=== PATIENT | male | born 1975 | race Caucasian/White ===

== ENCOUNTER 2020-04-02 10:29 | Outpatient (CLI) | payer OTHER, SELFPAY ==
[2020-04-02 11:04] LABS: Basophils Absolute Auto 0.1 K/mm3 (0.0-0.1); Basophils Percent Auto 0.8 % (0.2-1.2); Eosinophils Absolute Auto 0.2 K/mm3 (0-0.3); Eosinophils Percent Auto 2.8 % (0-4.4); Hematocrit 43.5 % (42.0-52.0); Hemoglobin 15.2 g/dL (14.0-18.0); Immature Granulocyte Absolute 0.03 K/mm3 (0.00-0.031); Immature Granulocyte Percent A 0.5 % (0-0.5); Lymphocytes Absolute Auto 2.23 K/mm3 (0.9-3.2); Lymphocytes Percent Auto 34.5 % (18.3-44.2); Mean Corpuscular HGB Conc 34.9 g/dl (32-36); Mean Corpuscular Hemoglobin 30.5 pg (26-34); Mean Corpuscular Volume 87.3 fl (80-100); Mean Platelet Volume 9.2 fl (7.4-10.4); Monocytes Absolute Auto 0.4 K/mm3 (0.1-0.6); Monocytes Percent Auto 6.6 % (2.6-8.5); Neutrophils Absolute Auto 3.6 K/mm3 (1.3-6.7); Neutrophils Percent Auto 54.8 % (45.5-73.1); Platelet Count Result 202 k/mm3 (150-375); Red Blood Count 4.98 M/mm3 (4.6-6.20); Red Cell Distribution Width 11.9 % (11.5-14.5); White Blood Count 6.5 K/mm3 (4.5-10.0)
[2020-04-02 11:10] LABS: Add Urine Microscopic? NO; Appearance Urine Clear (Clear); Bilirubin Urine Negative (Negative); Blood Urine Negative (Negative); Color Urine Straw (Yellow); Glucose Urine UA Negative (Negative); Ketones Urine Negative (Negative); Leukocyte Esterase Ur Negative LEU/UL (Negative); Nitrate Urine Negative (Negative); Protein Urine Negative (Negative); Specific Grav Ur 1.012 (1.001-1.035); Urobilinogen Urine Negative mg/dL (<2.0)
[2020-04-02 11:13] LABS: Urine Cotinine NEGATIVE
[2020-04-02 11:19] LABS: Alanine Aminotransferase 36 U/L (4-50); Albumin Level 4.5 g/dL (3.5-5.1); Alkaline Phosphatase 62 U/L (38-126); Anion Gap 9 mmol/L (8-16); Aspartate Amino Transferase 31 U/L (17-59); Bilirubin,Total 0.7 mg/dL (0.2-1.3); Blood Urea Nitrogen 19 mg/dL (9-20); Calcium 9.6 mg/dL (8.4-10.2); Carbon Dioxide 31 mmol/L (22-30); Chloride 102 mmol/L (98-107); Cholesterol 185 mg/dL (0-200); Estimated Glomerular Filt Rate > 60; Glucose 104 mg/dL (75-110); HDL Direct 46 mg/dL; Potassium 3.9 mmol/L (3.4-5.0); Sodium 142 mmol/L (137-145); Triglycerides 165 mg/dL (<150)
[2020-04-02 11:31] LABS: LDL Cholesterol Direct 121 mg/dL
[2020-04-02 12:15] LABS: Thyroid Stimulating Hormone Reflex 0.883 uIU/mL (0.465-4.68)
== END 2020-04-02 10:30 | disposition home or self-care (01) ==
PROVIDERS: PCP Registered Nurse; Visit Provider Registered Nurse
DX: Z68.29 Body mass index [BMI] 29.0-29.9, adult (principal); I10 Essential (primary) hypertension
CPT/HCPCS: 80053; 80061; 80307; 81003; 84443; 85025

== ENCOUNTER 2020-07-04 20:30 | Emergency (ER) | payer OTHER, SELFPAY ==
[2020-07-04 20:42] VITALS: BP 175/146; PULSE 135; RESP 18; TEMP 36.7; O2SAT 99
--- NOTE | 2020-07-04 20:44 | ED.ARRPALP ---
HPI - Arrhythmia/Palpitations General Chief Complaint: Arrhythmia/Palpitations Stated Complaint: inc hr Time Seen by Provider: 07/04/20 20:36 History of Present Illness HPI narrative: Patient is a 45-year-old male who presents ER with palpitations. Symptoms began approximately 1 hour ago. Patient has history of atrial flutter. Has been prescribed metoprolol in the past but did not tolerate it well. His PCP attempted to switch him to Bystolic but it was not covered by insurance. He has been in contact with his doctor and the insurance company trying to get it approved. Reports he had a couple cups of coffee earlier in the day and then a couple in the afternoon. No additional caffeine intake. Reports he is feeling discomfort up in his neck similar to previous palpitations. No chest pain or chest pressure. No exertional dyspnea/nausea/vomiting. He did feel a little sweaty earlier in the day. Patient reports he is undergone some additional stress during the week due to a family member having had a stroke/head bleed. Also reports he felt that he had similar symptoms several days ago but they rapidly resolved on their own. Related Data Allergies Allergy/AdvReac Type Severity Reaction Status Date / Time No Known Allergies Allergy Unverified 09/13/17 19:52 Review of Systems Review of Systems: All systems reviewed & are unremarkable except as noted in HPI and below Constitutional: Constitutional: Denies chills, Denies fever(s) and Denies weakness Cardiovascular: Cardiovascular: Denies chest pain, Reports rapid heart rate and Denies radiating jaw, neck or arm pain Respiratory: Respiratory: Denies cough, Denies dyspnea and Denies wheezing Gastrointestinal: Gastrointestinal: Denies abdominal pain, Denies nausea and Denies vomiting Neurologic: Denies dizziness PMFSH Past Medical History Medical History (Updated 07/04/20 @ 22:03 by Isaac Adames MD) Atrial flutter Surgical History Surgical History (Updated 07/04/20 @ 20:49 by Isaac Adames MD) No history of previous surgery Family History Family History (Updated 04/14/12 @ 11:13 by DOCTOR UNKNOWN) Other Diabetes mellitus Social History Social History (Updated 07/04/20 @ 20:49 by Isaac Adames MD) Smoking status: Never smoker Alcohol intake: never Exam Narrative: Exam Narrative: GENERAL: Well-appearing, well-nourished, and in no acute distress. HEAD: Normocephalic, atraumatic. ENT: Mucous membranes moist. CHEST: Clear to auscultation. No respiratory distress. HEART: Tachycardic and regular. Normal peripheral pulses. EXTREMITIES: Normal range of motion. No edema. NEURO: N Alert and oriented x3. PSYCH: Normal mood and affect. Course Course Emergency Course: Heart rate improved with Lopressor 5 mg and IV fluid. Discussed case with Dr. Tenorio. Recommends oral Cardizem 60 mg x 1 here and then 3 times daily until he can follow-up to be switched to long-acting. Patient verbalized understanding. No symptoms at this time. Discharge home. Vital Signs Vital signs: Vital Signs Temperature 98.0 F 07/04/20 20:42 Pulse Rate 135 H 07/04/20 20:42 Respiratory Rate 18 07/04/20 20:42 Blood Pressure 175/146 H 07/04/20 20:42 Pulse Oximetry 99 07/04/20 20:42 Temperature 98.0 F 07/04/20 20:42 Pulse Rate 85 07/04/20 21:18 Respiratory Rate 16 07/04/20 21:18 Blood Pressure 146/108 H 07/04/20 21:18 Pulse Oximetry 99 07/04/20 21:18 MDM - Arrhythmia/Palpitations Lab Data Result diagrams: 07/04/20 20:41 07/04/20 20:41 Labs: Lab Results 07/04/20 07/04/20 07/04/20 Range/Units 20:41 20:41 20:41 WBC 10.7 H (4.5-10.0) K/mm3 RBC 5.17 (4.6-6.20) M/mm3 Hgb 16.0 (14.0-18.0) g/dL Hct 46.1 (42.0-52.0) % MCV 89.2 (80-100) fl MCH 30.9 (26-34) pg MCHC 34.7 (32-36) g/dl RDW 12.6 (11.5-14.5) % Plt Count 245 (150-375) k/mm3 MPV 9.2 (7.
[2020-07-04 20:48] VITALS: PULSE 139
[2020-07-04] MEDS: METOPROLOL TARTRATE INJ 5 MG/5 ML VIAL IV PUSH (20:48)
[2020-07-04 20:51] LABS: Basophils Absolute Auto 0.1 K/mm3 (0.0-0.1); Basophils Percent Auto 0.7 % (0.2-1.2); Eosinophils Absolute Auto 0.3 K/mm3 (0-0.3); Eosinophils Percent Auto 2.9 % (0-4.4); Hematocrit 46.1 % (42.0-52.0); Immature Granulocyte Absolute 0.06 K/mm3 (0.00-0.031); Immature Granulocyte Percent A 0.6 % (0-0.5); Lymphocytes Absolute Auto 4.13 K/mm3 (0.9-3.2); Lymphocytes Percent Auto 38.7 % (18.3-44.2); Mean Corpuscular HGB Conc 34.7 g/dl (32-36); Mean Corpuscular Hemoglobin 30.9 pg (26-34); Mean Corpuscular Volume 89.2 fl (80-100); Mean Platelet Volume 9.2 fl (7.4-10.4); Monocytes Absolute Auto 0.8 K/mm3 (0.1-0.6); Monocytes Percent Auto 7.1 % (2.6-8.5); Neutrophils Absolute Auto 5.3 K/mm3 (1.3-6.7); Platelet Count Result 245 k/mm3 (150-375); Red Blood Count 5.17 M/mm3 (4.6-6.20); Red Cell Distribution Width 12.6 % (11.5-14.5); White Blood Count 10.7 K/mm3 (4.5-10.0)
--- NOTE | 2020-07-04 21:00 | ECG_ITS ---
Measurements Intervals [place] Rate: 145 P: RI: 0 QRS: 55 QRSD: 92 T: -66 QT: 299 QTc: 465 Interpretive Statements ATRIAL FLUTTER/TACHYCARDIA WITH RAPID VENTRICULAR RESPONSE BORDERLINE ST-T WAVE ABNORMALITY- INF/LAT LEADS ABNORMAL ECG Electronically Signed On 07-05-2020 8:02:07 NON CDL DRIVER by Haroldo Dueñas D.O.
[2020-07-04 21:01] VITALS: BP 172/154; PULSE 105; RESP 18; O2SAT 98
[2020-07-04 21:02] LABS: Magnesium 2.4 mg/dL (1.6-2.3)
[2020-07-04] MEDS: SODIUM CHLORIDE 0.9% IV 1,000 ML 999 ML (21:03)
[2020-07-04 21:11] LABS: NT Pro B Type Natriuretic Pept 29 PG/ML (5-100)
[2020-07-04 21:14] LABS: Anion Gap 10 mmol/L (8-16); Blood Urea Nitrogen 20 mg/dL (9-20); Calcium 9.6 mg/dL (8.4-10.2); Carbon Dioxide 27 mmol/L (22-30); Chloride 101 mmol/L (98-107); Estimated CRCL calculation 92 ml/min; Estimated Glomerular Filt Rate > 60; Glucose 111 mg/dL (75-110); Potassium 3.8 mmol/L (3.4-5.0); Sodium 138 mmol/L (137-145)
[2020-07-04 21:18] VITALS: BP 146/108; PULSE 85; RESP 16; O2SAT 99
--- NOTE | 2020-07-04 21:18 | ECG_ITS ---
Measurements Intervals [place] Rate: 84 P: 62 [place]: 187 QRS: 35 QRSD: 106 T: 36 QT: 376 QTc: 445 Interpretive Statements SINUS RHYTHM MINIMAL Q WAVES- INFERIOR LEADS BORDERLINE ECG Electronically Signed On 07-05-2020 8:06:59 AUTOMATIC ENGRAVER by Haroldo Dueñas D.O.
[2020-07-04 22:12] VITALS: BP 139/104; PULSE 85; RESP 16; TEMP 36.6; O2SAT 99
[2020-07-04] MEDS: dilTIAZem HCL 60 MG TABLET PO (22:12)
== END 2020-07-04 22:13 | disposition home or self-care (01) ==
PROVIDERS: Emergency Provider Emergency Medicine; PCP Registered Nurse
DX: I48.92 Unspecified atrial flutter (principal)
CPT/HCPCS: 36415; 80048; 83735; 83880; 85025; 93005; 96361; 96374; 99284; A9270; J7030

== ENCOUNTER 2020-12-08 14:00 | Emergency (ER) | payer OTHER, SELFPAY ==
--- NOTE | ~2020-12-08 | US_ITS ---
US venous doppler [facility] DATE: 12/08/2020 15:00 INDICATION: Left lower extremity pain and swelling for 2 months. TECHNIQUE: Real-time and color flow imaging and Doppler analysis of the veins of the left lower extre mity COMPARISON: None FINDINGS: Left greater saphenous vein is patent. There is spontaneous and phasic flow and normal augm entation and color flow signal and normal compression of the deep veins of the left lower extremity. IMPRESSION: No evidence of deep venous thrombosis of left leg Reviewed, dictated and finalized at [facility]. Reviewed, dictated and finalized at [facility].
[2020-12-08 14:05] VITALS: BP 149/84; PULSE 73; RESP 18; TEMP 36.7; O2SAT 98
--- NOTE | 2020-12-08 15:14 | ED.LOWEXIN ---
HPI - Extremity Injury (Lower) General Chief Complaint: Extremity Injury, Lower Stated Complaint: left leg swelling Time Seen by Provider: 12/08/20 15:08 Source: patient Mode of arrival: ambulatory Limitations: no limitations History of Present Illness HPI Narrative: Patient is 45 years old white male presents with pain and discomfort at left lower leg started few weeks ago. Patient on baby aspirin, history of atrial fibrillation, patient works out intermittently, noticed some bruises at the back of left lower leg without any specific trauma. Later started having some discomfort at the left thigh. Patient is concerned about the possibility of deep vein thrombosis. Patient denies any fever, chills, nausea, vomiting, chest pain, shortness of breath, headache. Related Data Home Medications Medication Instructions Recorded Confirmed aspirin 325 mg PO DAILY 12/08/20 12/08/20 diltiazem HCl PO 12/08/20 Allergies Allergy/AdvReac Type Severity Reaction Status Date / Time No Known Allergies Allergy Unverified 09/13/17 19:52 Review of Systems Review of Systems: Narrative: CONSTITUTIONAL: Denies fever, chills, or sweats. EYES: Denies visual changes, redness, or discharge. ENT: Denies rhinorrhea, congestion, sore throat, or otalgia. CARDIOVASCULAR: Denies chest pain, palpitations, or edema. RESPIRATORY: Denies cough or dyspnea. GASTROINTESTINAL: Denies abdominal pain, nausea, vomiting, or diarrhea. GENITOURINARY: Denies dysuria or hematuria. SKIN: Denies rash or itching. MUSCULOSKELETAL: Denies back pain, joint pain, or myalgia. NEUROLOGIC: Denies headache, numbness, or weakness. PSYCHIATRIC: Denies anxiety or depression. [facility] Past Medical History Medical History Atrial flutter Surgical History Surgical History No history of previous surgery Family History Family History Other Diabetes mellitus Social History Social History Smoking status: Never smoker Alcohol intake: never Exam Narrative: Exam Narrative: General appearance: Well-developed, well-nourished Skin: Normal color, few scattered spider veins of the lower extremity bilaterally, old healing bruises on the left lower leg posteriorly, with yellowish discoloration, no swelling, normal size lower leg bilaterally. Head: Normocephalic, nontraumatic Chest and respiratory: Airway patent, no respiratory distress, no accessory muscle use Heart: Regular rate/rhythm Vascular: Normal peripheral pulses, normal capillary refill. Musculoskeletal: Normal range of motion, nontender back Neurologic: Alert and oriented ?3, [place] is normal as tested, no gross motor deficit Course Course Emergency Course: Stable Vital Signs Vital signs: Vital Signs Temperature 36.7 C 12/08/20 14:05 Pulse Rate 73 12/08/20 14:05 Respiratory Rate 18 12/08/20 14:05 Blood Pressure 149/84 H 12/08/20 14:05 Pulse Oximetry 98 12/08/20 14:05 Temperature 36.7 C 12/08/20 14:05 Pulse Rate 73 12/08/20 14:05 Respiratory Rate 18 12/08/20 14:05 Blood Pressure 149/84 H 12/08/20 14:05 Pulse Oximetry 98 12/08/20 14:05 MDM - Extremity Injury (Lower) MDM Narrative Medical decision making narrative: Bruises, varicose veins, deep vein thrombosis is my concern. Venous ultrasound left lower leg ordered. Further plan to follow Differential Diagnosis Differential diagnosis: Likely other (Muscular pain, varicose veins, hematoma, deep vein thrombosis) Imaging Data Radiologist's impr
== END 2020-12-08 15:37 | disposition home or self-care (01) ==
PROVIDERS: Emergency Provider Emergency Medicine; PCP Registered Nurse
DX: M79.662 Pain in left lower leg (principal); I48.91 Unspecified atrial fibrillation; Z79.82 Long term (current) use of aspirin
CPT/HCPCS: 93971; 99284

== ENCOUNTER 2021-06-24 10:29 | Emergency (ER) | payer OTHER, SELFPAY ==
--- NOTE | ~2021-06-24 | CT_ITS ---
EXAMINATION: CT abdomen pelvis w con DATE: 06/24/2021 11:53 INDICATION: Epigastric abdominal pain TECHNIQUE: Computed tomography (CT) of the abdomen and pelvis was performed with 100 cc Omnipaque 350 intravenous contrast. Automated exposure control and iterative reconstruction technique were employe d. Exam dose: 422.14 mGy-cm total exam DLP. COMPARISON: None. FINDINGS: The lung bases are clear. Normal heart size. No pericardial or pleural effusion. The liver, gallbladder, bile ducts, pancreas, pancreatic duct, spleen, and adrenal glands are unremar kable. Approximately 3 mm hypoenhancing area of the anterior upper pole of the left kidney is too small to d efinitively characterize, possibly a small cyst. 4 right renal cysts are identified, measuring up to 1.7 cm approximate maximal dimension. No urinary tract calculus or hydroureteronephrosis. The urinary bladder is unremarkable. There are pr ostate calcifications. There is calcification but no aneurysm of the abdominal aorta. No intraperitoneal or retroperitoneal or pelvic mass lesion or adenopathy or ascites. Normal appendix. Diverticulosis of the sigmoid colon; no CT evidence of diverticulitis. No bowel obstruction, bowel wa ll thickening, pneumatosis or intraperitoneal free air is evident. There is minimal nonspecific free fluid in the dependent pelvis. Included skeletal structures are unremarkable; no suspicious osteolytic or osteoblastic lesions. IMPRESSION: Indeterminate 3 mm hypoattenuating lesion of the left kidney 4 right renal cysts Normal appendix Diverticulosis of sigmoid colon; no CT evidence of diverticulitis Prostate calcifications Reviewed, dictated and finalized at [facility]. Reviewed, dictated and finalized at [facility]. 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
[2021-06-24 10:34] VITALS: BP 149/97; PULSE 75; RESP 17; TEMP 36.5; O2SAT 97
[2021-06-24] MEDS: ONDANSETRON HCL ODT 4 MG TABLET PO (11:04)
--- NOTE | 2021-06-24 11:16 | ED.GENADULT ---
HPI - General Adult General Chief complaint: Abdominal Pain <Srinivas Stark PA-C - Last Filed: 06/24/21 13:19> Stated complaint: Abd pain. <Srinivas Stark PA-C - Last Filed: 06/24/21 13:19> Time Seen by Provider: 06/24/21 10:49 <Srinivas Stark PA-C - Last Filed: 06/24/21 13:19> Source: patient <Srinivas Stark PA-C - Last Filed: 06/24/21 13:19> Mode of arrival: ambulatory <CHRISTEL Patricia Last Filed: 06/24/21 13:19> Limitations: no limitations <Srinivas Stark PA-C - Last Filed: 06/24/21 13:19> History of Present Illness HPI narrative: Patient is a 46-year-old male presented with chief complaint of 2 days of epigastric pain that seems to radiate into his left upper flank. Patient reports he is also had acute episodes of nausea and vomiting. Patient reports at times the pain is dull heaviness other times it is sharp in nature. He denies vomiting at this time. Patient denies diarrhea, fever, chills, shortness of breath, chest pain, urinary symptoms. Patient reports that he occasionally Pepcid. He reports having a few beers occasionally but not having any excessive drinking prior to the start of his symptoms. <Srinivas Stark PA-C - Last Filed: 06/24/21 13:19> Related Data Home medications: Home Medications Medication Instructions Recorded Confirmed aspirin 325 mg PO DAILY 12/08/20 12/08/20 diltiazem HCl PO 12/08/20 <Srinivas Stark PA-C - Last Filed: 06/24/21 13:19> Allergies/adverse reactions: Allergies Allergy/AdvReac Type Severity Reaction Status Date / Time No Known Allergies Allergy Unverified 09/13/17 19:52 <Srinivas Stark PA-C - Last Filed: 06/24/21 13:19> Review of Systems Review of Systems: CONSTITUTIONAL: Denies fever, chills, or sweats. EYES: Denies visual changes, redness, or discharge. ENT: Denies rhinorrhea, congestion, sore throat, or otalgia. CARDIOVASCULAR: Denies chest pain, palpitations, or edema. RESPIRATORY: Denies cough or dyspnea. GASTROINTESTINAL: Reports upper abdominal pain, nausea, vomiting denies diarrhea. GENITOURINARY: Denies dysuria or hematuria. SKIN: Denies rash or itching. MUSCULOSKELETAL: Denies back pain, joint pain, or myalgia. NEUROLOGIC: Denies headache, numbness, dizziness, or weakness. PSYCHIATRIC: Denies anxiety or depression. <Srinivas Stark PA-C - Last Filed: 06/24/21 13:19> [facility] Past Medical History Medical History: Medical History Atrial flutter <Srinivas Stark PA-C - Last Filed: 06/24/21 13:19> Surgical History Surgical History: Surgical History No history of previous surgery <Srinivas Stark PA-C - Last Filed: 06/24/21 13:19> Family History Family History: Family History Other Diabetes mellitus <Srinivas Stark PA-C - Last Filed: 06/24/21 13:19> Social History Social History: Social History Smoking status: Never smoker Alcohol intake: never <CHRISTEL Patricia Last Filed: 06/24/21 13:19> Exam Narrative: GENERAL: Well-appearing, well-nourished, and in no acute distress. HEAD: Normocephalic, atraumatic. EYES: PERRLA and EOMI. NECK: Supple. No adenopathy or masses. ROM intact CHEST: Clear to auscultation. No respiratory distress. No wheezes rales or rhonchi HEART: Regular rate and rhythm. ABDOMEN: Soft, tenderness to umbilical and epigastric area, no guarding or rebound nondistended, normal active bowel sounds. EXTREMITIES: Normal range of motion. No edema. SKIN: Warm, dry, no rash. NEURO: No focal deficits. Alert and oriented x3. PSYCH: Normal mood and affect. <Srinivas Stark PA-C - Last Filed: 06/24/21 13:19> Course Vital Signs Vital signs: Vital Signs Temperature 97.7 F 06/24/21 10:34 Pulse Rate 75 06/24/21 10:34
[2021-06-24 11:23] VITALS: BP 140/80; PULSE 75; RESP 20; TEMP 36.5; O2SAT 99
[2021-06-24 11:24] LABS: Basophils Percent Auto 0.7 % (0.2-1.2); Eosinophils Absolute Auto 0.2 K/mm3 (0-0.3); Eosinophils Percent Auto 2.8 % (0-4.4); Hematocrit 46.1 % (42.0-52.0); Hemoglobin 15.7 g/dL (14.0-18.0); Immature Granulocyte Absolute 0.02 K/mm3 (0.00-0.031); Immature Granulocyte Percent A 0.4 % (0-0.5); Lymphocytes Absolute Auto 1.22 K/mm3 (0.9-3.2); Lymphocytes Percent Auto 22.4 % (18.3-44.2); Mean Corpuscular HGB Conc 34.1 g/dl (32-36); Mean Corpuscular Hemoglobin 30.7 pg (26-34); Mean Platelet Volume 9.2 fl (7.4-10.4); Monocytes Absolute Auto 0.7 K/mm3 (0.1-0.6); Monocytes Percent Auto 11.9 % (2.6-8.5); Neutrophils Absolute Auto 3.4 K/mm3 (1.3-6.7); Neutrophils Percent Auto 61.8 % (45.5-73.1); Platelet Count Result 200 k/mm3 (150-375); Red Blood Count 5.12 M/mm3 (4.6-6.20); Red Cell Distribution Width 12.4 % (11.5-14.5); White Blood Count 5.5 K/mm3 (4.5-10.0)
[2021-06-24 11:41] LABS: Alanine Aminotransferase 35 U/L (4-50); Albumin Level 4.8 g/dL (3.5-5.1); Alkaline Phosphatase 63 U/L (38-126); Anion Gap 9 mmol/L (8-16); Aspartate Amino Transferase 30 U/L (17-59); Blood Urea Nitrogen 23 mg/dL (9-20); Calcium 9.4 mg/dL (8.4-10.2); Carbon Dioxide 30 mmol/L (22-30); Chloride 98 mmol/L (98-107); Estimated CRCL calculation 102 ml/min; Estimated Glomerular Filt Rate > 60; Glucose 107 mg/dL (65-110); Lipase 38 U/L (23-300); Potassium 3.6 mmol/L (3.4-5.0); Sodium 137 mmol/L (137-145)
[2021-12-25 19:09] LABS: Urine Cotinine NEGATIVE
== END 2021-06-24 12:52 | disposition home or self-care (01) ==
PROVIDERS: Physician Assistant; Emergency Provider General Practice; PCP Registered Nurse
DX: R10.13 Epigastric pain (principal); R11.2 Nausea with vomiting, unspecified; I48.92 Unspecified atrial flutter; Z79.82 Long term (current) use of aspirin
CPT/HCPCS: 36415; 74177; 80053; 83690; 85025; 99284; A9270; Q9967

== ENCOUNTER 2022-12-10 15:22 | Emergency (ER) | payer OTHER, SELFPAY ==
--- NOTE | ~2022-12-10 | XR_ITS ---
XR ribs LT 2V w CXR 2V DATE: 12/10/2022 15:43 INDICATION: Left lateral rib pain after fall. Pain on inspiration. TECHNIQUE: PA and lateral views COMPARISON: 09/13/2017 FINDINGS: Normal heart size. No hilar or mediastinal enlargement. No pulmonary infiltrate or consol idation, pulmonary vascular congestion or pleural effusion or pneumothorax. IMPRESSION: No active cardiopulmonary disease Reviewed, dictated and finalized at [facility].
[2022-12-10 15:25] VITALS: BP 132/88; PULSE 73; RESP 18; TEMP 36.1; O2SAT 99
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
[2022-12-10] MEDS: oxyCODONE HCL (*CRX) 5 MG TAB IR PO (18:02)
[2022-12-10 18:03] VITALS: BP 120/86; PULSE 72; RESP 16; O2SAT 98
== END 2022-12-10 18:05 | disposition home or self-care (01) ==
PROVIDERS: Emergency Provider Emergency Medicine; PCP Registered Nurse
DX: S20.212A Contusion of left front wall of thorax, initial encounter (principal); I48.92 Unspecified atrial flutter; Y04.0XXA Assault by unarmed brawl or fight, initial encounter
CPT/HCPCS: 71046; 71100; 99283; A9270

== ENCOUNTER 2023-05-01 10:46 | Outpatient (CLI) | payer OTHER, SELFPAY ==
[2023-05-01 11:16] LABS: Basophils Absolute Auto 0.1 K/mm3 (0.0-0.1); Basophils Percent Auto 0.8 % (0.2-1.2); Eosinophils Absolute Auto 0.3 K/mm3 (0-0.3); Eosinophils Percent Auto 3.4 % (0-4.4); Hematocrit 41.2 % (42.0-52.0); Immature Granulocyte Absolute 0.07 K/mm3 (0.00-0.031); Immature Granulocyte Percent A 0.8 % (0-0.5); Lymphocytes Absolute Auto 3.05 K/mm3 (0.9-3.2); Lymphocytes Percent Auto 36.2 % (18.3-44.2); Mean Corpuscular Hemoglobin 30.2 pg (26-34); Monocytes Absolute Auto 0.7 K/mm3 (0.1-0.6); Neutrophils Absolute Auto 4.3 K/mm3 (1.3-6.7); Neutrophils Percent Auto 50.8 % (45.5-73.1); Platelet Count Result 230 k/mm3 (150-375); Red Blood Count 4.63 M/mm3 (4.6-6.20); Red Cell Distribution Width 12.3 % (11.5-14.5); White Blood Count 8.4 K/mm3 (4.5-10.0)
[2023-05-01 11:17] LABS: Appearance Urine Clear (Clear); Bilirubin Urine Negative (Negative); Blood Urine Negative (Negative); Color Urine Yellow (Yellow); Glucose Urine UA Negative (Negative); Ketones Urine Negative (Negative); Leukocyte Esterase Ur Negative LEU/UL (Negative); Nitrate Urine Negative (Negative); Protein Urine Negative (Negative); Specific Grav Ur 1.022 (1.001-1.035)
[2023-05-01 11:27] LABS: Alanine Aminotransferase 56 U/L (6-50); Albumin Level 4.7 g/dL (3.5-5.1); Alkaline Phosphatase 56 U/L (38-126); Anion Gap 7 mmol/L (8-16); Aspartate Amino Transferase 43 U/L (17-59); Bilirubin,Total 0.6 mg/dL (0.2-1.3); Blood Urea Nitrogen 17 mg/dL (9-20); Calcium 9.6 mg/dL (8.4-10.2); Carbon Dioxide 28 mmol/L (22-30); Chloride 104 mmol/L (98-107); Cholesterol 205 mg/dL (0-200); Creatine Kinase 226 U/L (55-170); Estimated Glomerular Filt Rate > 60; Glucose 111 mg/dL (65-110); HDL Direct 36 mg/dL; Potassium 3.9 mmol/L (3.4-5.0); Sodium 139 mmol/L (137-145); Triglycerides 257 mg/dL (<150)
[2023-05-01 11:38] LABS: LDL Cholesterol Direct 121 mg/dL
[2023-05-01 11:56] LABS: Prostate Specific Antigen 0.9 ng/mL (< OR = 4.0)
[2023-05-01 13:17] LABS: Vitamin D 25 Hydroxy 33.4 ng/mL
[2023-05-06 10:19] LABS: Add Urine Microscopic? NO
== END 2023-05-01 10:47 | disposition home or self-care (01) ==
LOC: ANHLAB 10:49
PROVIDERS: PCP Registered Nurse; Visit Provider Registered Nurse
DX: Z00.00 Encounter for general adult medical examination without abnormal findings (principal); E78.2 Mixed hyperlipidemia; I10 Essential (primary) hypertension; Z12.5 Encounter for screening for malignant neoplasm of prostate
CPT/HCPCS: 36415; 80053; 80061; 81001; 81003; 82306; 82550; 84153; 85025; G0103

== ENCOUNTER 2023-10-08 01:14 | Day surgery (SDC) | payer OTHER, SELFPAY ==
[2023-09-29 08:50] VITALS: BMI 35.1
--- NOTE | 2023-10-06 14:18 | SUR.PREOP ---
Patient called regarding upcoming procedure. Voicemail left regarding appointment times.
[2023-10-08 06:25] VITALS: BP 123/77; PULSE 61; RESP 18; TEMP 36.4; O2SAT 95
[2023-10-08] MEDS: LACTATED RINGERS 1,000 ML 150 ML IV CONT (06:29)
--- NOTE | 2023-10-08 07:22 | WPDANESEPPF ---
Anes - Initial Pre Proc Eval Procedure: Operation Date: 10/08/23 07:30 Proposed Procedures p Screening Colonoscopy - Delon Parikh MD Date/Time: 10/08/23 07:22 Surgeon: Delon Parikh MD Pre Op Diagnosis: neoplasm screening Patient Data Age: 48 Gender: M Height: 1.78 m Weight: 107.5 kg Last Vital Signs Temp 97.6 F 10/08/23 06:25 Pulse 61 10/08/23 06:25 Resp 18 10/08/23 06:25 BP 123/77 10/08/23 06:25 Pulse Ox 95 10/08/23 06:25 O2 Del Method Room Air 10/08/23 06:25 Allergies Allergy/AdvReac Type Severity Reaction Status Date / Time No Known Allergies Allergy Verified 10/08/23 06:22 Home Medications Medication Instructions Recorded Confirmed Type escitalopram oxalate 20 mg tablet 20 mg PO DAILY 12/10/22 09/29/23 History amlodipine 5 mg tablet 5 mg PO DAILY 07/09/23 09/29/23 History aspirin 325 mg tablet,delayed 325 mg PO DAILY 07/09/23 09/29/23 History release bisoprolol fumarate 10 mg tablet 10 mg PO DAILY 07/09/23 09/29/23 History Patient hx anesthesia problems: none Family hx anesthesia problems: none Results Review: All pre-operative results and documents have been reviewed as part of the pre-operative evaluation. [facility] Past Medical History Medical History Atrial flutter Surgical History Surgical History No history of previous surgery Family History Family History Other Diabetes mellitus Social History Social History Smoking status: Never smoker Alcohol intake: current Drinks per week: 4 Substance use: never Substance use type: does not use Living arrangements: with family Spiritual care concerns: No Anes - Eval Final PreProcedure Day of Procedure 10/08/23 07:22 Patient weight: obese Heart: regular rate and rhythm Lungs: clear to auscultation Airway: Mallampati scale class II Neurological: alert and oriented Last oral intake: >/= 8 hours ASA classification: III Emergent: no Anesthetic plan: proceed Anesthesia type and monitoring: general GIVS and standard monitoring Results Review: All pre-operative results and documents have been reviewed as part of the pre-operative evaluation. Informed Consent: The patient's anesthetic plan and its attendant risks and benefits were discussed with the patient/family/POA. Questions were solicited and answers provided to the satisfaction of the patient/family/POA.
--- NOTE | 2023-10-08 07:30 | PM.HPGS ---
History of Present Illness History of Present Illness Consent: Risks, benefits, and alternatives have been discussed and questions answered. Patient agrees to proceed with procedure. Chief complaint: neoplasm screening Narrative: Ramin Giles is a 48 year old male with last colonoscopy 5 years ago, father had colon cancer Review of Systems Review of Systems: All systems reviewed & are unremarkable except as noted in HPI and below PMFSH Past Medical History Medical History (Updated 10/08/23 @ 07:30 by Delon Parikh MD) Atrial flutter Family history of colon cancer in father Surgical History Surgical History No history of previous surgery Family History Family History Other Diabetes mellitus Social History Social History Smoking status: Never smoker Alcohol intake: current Drinks per week: 4 Substance use: never Substance use type: does not use Living arrangements: with family Spiritual care concerns: No Meds Home Medications and Allergies Home Medications Medication Instructions Recorded Confirmed Type escitalopram oxalate 20 mg tablet 20 mg PO DAILY 12/10/22 09/29/23 History amlodipine 5 mg tablet 5 mg PO DAILY 07/09/23 09/29/23 History aspirin 325 mg tablet,delayed 325 mg PO DAILY 07/09/23 09/29/23 History release bisoprolol fumarate 10 mg tablet 10 mg PO DAILY 07/09/23 09/29/23 History Allergies Allergy/AdvReac Type Severity Reaction Status Date / Time No Known Allergies Allergy Verified 10/08/23 06:22 Vital Signs Vital Signs - 24 hr 10/08/23 06:25 Temperature 97.6 F Pulse Rate 61 Respiratory Rate 18 Blood Pressure 123/77 Pulse Oximetry 95 Oxygen Delivery Room Air Exam Const: General: comfortable and no acute distress HENMT: Face/Nose/Sinus: Normal nares present Eyes: General: appearance normal, both eyes and all related structures Neck: Neck: no JVD Resp: Auscultation: clear to auscultation bilaterally Cardio: Rate: regular rate Rhythm: regular rhythm GI: Inspection: non-distended GI Palp: Yes Soft to palpation Skin: General skin exam: normal color Neuro: General: gait normal Speech: normal speech Extrem: General: normal to inspection Psych: Mental Status: mental status grossly normal Assessment and Plan Assessment and plan (1) Family history of colon cancer in father: Code(s): Z80.0 - Family history of malignant neoplasm of digestive organs Status: Acute Assessment and Plan: colonoscopy
[2023-10-08 07:45] VITALS: BP 102/65; PULSE 62; RESP 17; O2SAT 96
[2023-10-08 07:55] VITALS: BP 100/70; PULSE 59; RESP 19; O2SAT 99
[2023-10-08 08:05] VITALS: BP 116/75; PULSE 58; RESP 19; O2SAT 98
== END 2023-10-08 08:09 | disposition home or self-care (01) ==
PROVIDERS: PCP Registered Nurse; Visit Provider Internal Medicine Gastroenterology
PROC: 0DJD8ZZ Inspection of Lower Intestinal Tract, Via Natural or Artificial Opening Endoscopic (ICD-10-PCS; CPT 45378; principal; 2023-10-08 07:30)
DX: Z12.11 Encounter for screening for malignant neoplasm of colon (principal); K57.30 Diverticulosis of large intestine without perforation or abscess without bleeding; Z79.82 Long term (current) use of aspirin; E66.9 Obesity, unspecified; Z68.34 Body mass index [BMI] 34.0-34.9, adult; Z80.0 Family history of malignant neoplasm of digestive organs
CPT/HCPCS: 45378; J2704; J7120

== ENCOUNTER 2024-10-05 12:40 | Outpatient (CLI) | payer OTHER, SELFPAY ==
--- OUTSIDE RECORDS SUMMARY | 2024-10-05 12:50 | XMS_ITS | Encounter Summary ---
Author Organization [employer] Address [address] [place] [address] Care Team Providers Care It Auditor Name Role Phone Octaviano Saul MD Primary Care Provider Unav ailable Encounter Details Date Type Department Care Team (Latest Contact Info) Description 09/05/2007 Outpatient Historical HIS [facility] OR[facility] Palafox, MD Rupesh [address] [facility] [address] [place] [address] Other Malaise and Fatigue Social History Tobacco Use Types Packs/Day Years Used Date Smoking Tobacco: Never Assessed Sex and Gender Information Value Date Recorded Sex Assigned at Not on file Legal Sex Male 3:59 AM CERAMIC TILE SETTER Gender Identity Not on file Sexual Orientation Not on file documented as of this encounter Plan of Treatment Not on file documented as of this encounter Procedures Procedure Name Priority Date/Time Associated Diagnosis Comments HEPATIC FUNCTION PANEL Routine 09/09/2007 7:06 AM CERAMIC TILE SETTER CBC WITH DIFFERENTIAL Routine 09/05/2007 1:43 PM CERAMIC TILE SETTER documented in this encounter Results * (ABNORMAL) HEPATIC FUNCTION PANEL (09/09/2007 7:06 AM CERAMIC TILE SETTER) BILIRUBIN TOTAL 0.5 0.2 - 1.0 mg/dL [facility] ALKALINE PHOSPHATASE 86 40 - 129 U/L [facility] BILIRUBIN DIRECT 0.1 0.0 - 0.3 mg/dL [facility] TOTAL PROTEIN 7.6 6.3 - 8.6 g/dL [facility] AST 36 12 - 38 U/L [facility] ALBUMIN 4.4 3.4 - 4.8 g/dL [facility] ALT 71(H) 0 - 41 U/L [facility] Blood specimen (specimen) 09/09/2007 7:06 AM CERAMIC TILE SETTER 09/09/2007 8:17 AM CERAMIC TILE SETTER us Rupesh Palafox MD CHEMISTRY ORDERABLES Final Resul t [facility] [address] [place] [address] * (ABNORMAL) CBC WITH DIFFERENTIAL (09/05/2007 1:43 PM CERAMIC TILE SETTER) MPV 9.5 9.3 - 12.4 fL [facility] HEMATOCRIT 42.4 40.0 - 48.0 % [facility] RDW-STDEV 44.6 37.1 - 48.7 fL [facility] RBC 4.67 4.50 - 5.40 M/uL [facility] MCHC 33.3 31.5 - 35.5 % [facility] MCV 90.8 82.0 - 99.0 fL [facility] PLATELETS 251 140 - 350 K/uL [facility] HEMOGLOBIN 14.1 13.6 - 16.5 g/dL [facility] RDW 13.5 11.5 - 14.5 % [facility] WBC 9.5 4.0 - 9.8 K/uL [facility] MCH 30.2 27.2 - 32.6 pg [facility] BASOPHILS 1 0 - 2 % [facility] BASOPHILS ABSOLUTE 0.08 0.00 - 0.20 K/uL [facility] MONOCYTES 9 3 - 13 % [facility] MONOCYTE ABSOLUTE 0.86 0.10 - 1.30 K/uL [facility] NEUTROPHILS 31(L) 45 - 70 % [facility] NEUTROPHIL ABSOLUTE 2.92 1.90 - 7.00 K/uL [facility] EOSINOPHILS 4 0 - 7 % [facility] EOSINOPHIL ABSOLUTE 0.37 0.00 - 0.70 K/uL [facility] LYMPHOCYTES 56(H) 16 - 45 % [facility] LYMPHOCYTE ABSOLUTE 5.28(H) 0.70 - 4.50 K/uL [facility] Blood specimen (specimen) 09/05/2007 1:43 PM CERAMIC TILE SETTER 09/05/2007 1:55 PM CERAMIC TILE SETTER Rupesh Palafox MD HEMATOLOGY ORDERABLES Edited INTERFACE SYSTEM Refer to clinic/hospital department [facility] [address] [place] [address] documented in this encounter Visit Diagnoses Diagnosis Other malaise and fatigue documented in this encounter Care Teams It Auditor Relationship Specialty Start Date End Date Octaviano Saul MD PCP - General Internal Medicine 10/12/13 documented as of this encounter
--- OUTSIDE RECORDS SUMMARY | 2024-10-05 12:50 | XMS_ITS | Encounter Summary ---
Author Organization [facility] Address [address] [place] [address] Care Team Providers Care Hand Sole Sewer Name Role Phone Octaviano Saul MD Primary Care Provider Unav ailable Encounter Details Date Type Department Care Team (Latest Contact Info) Description 08/26/2007 Outpatient Historical HIS [facility] OR[facility] Palafox, MD [facility]upesh [facility] [facility] [address] [place] [id number] Acute Pharyngitis Social History Tobacco Use Types Packs/Day Years Used Date Smoking Tobacco: Never Assessed Sex and Gender Information Value Date Recorded Sex Assigned at Not on file Legal Sex Male 3:59 AM GERIATRIC 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 REPORTED RESULTS 08-29-07 01:53PM [facility] Blood specimen (specimen) 08/26/2007 2:56 PM GERIATRIC ASSISTANT 08/26/2007 3:30 PM GERIATRIC ASSISTANT Rupesh Palafox MD HEMATOLOGY ORDERABLES Final Resu lt Performing Organization Address City/[facility]/ZIP Co de Phone Number [facility] [address] [place] [address] * (ABNORMAL) MONONUCLEOSIS SCREEN (08/26/2007 2:56 PM GERIATRIC ASSISTANT) MONONUCLEOSIS SCREEN Positive( A) Negative [facility] Blood specimen (specimen) 08/26/2007 2:56 PM GERIATRIC ASSISTANT 08/26/2007 3:30 PM GERIATRIC ASSISTANT Result [facility] Rupesh Palafox MD HEMATOLOGY ORDERABLES Final Resu lt Performing Organization Address [facility] Co de Phone Number [facility] [address] [place] [address] documented in this encounter Visit Diagnoses Diagnosis Acute pharyngitis documented in this encounter Care Teams Hand Sole Sewer Relationship Specialty Start Date End Date Octaviano Saul MD PCP - General Internal Medicine 10/12/13 documented as of this encounter
--- OUTSIDE RECORDS SUMMARY | 2024-10-05 12:50 | XMS_ITS | Encounter Summary ---
Author Organization [employer] Address 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
--- OUTSIDE RECORDS SUMMARY | 2024-10-05 12:50 | XMS_ITS | Encounter Summary ---
Author Organization [employer] Address [address] [place] [address] Care Team Providers Care Big Data Developer Name Role Phone Octaviano Saul MD Primary Care Provider Unav ailable Encounter Details Date Type Department Care Team (Latest Contact Info) Description 08/24/2002 Outpatient Historical [facility] Dae Ferrera MD NO ADDRESS ON FILE JOINT PAIN-L/LEG (Primary Dx) Social History Tobacco Use Types Packs/Day Years Used Date Smoking Tobacco: Never Assessed Sex and Gender Information Value Date Recorded Sex Assigned at Not on file Legal Sex Male 3:59 AM PLANT CHIEF Gender Identity Not on file Sexual Orientation Not on file documented as of this encounter Plan of Treatment Not on file documented as of this encounter Visit Diagnoses Diagnosis Pain in joint, lower leg- Primary documented in this encounter Care Teams Big Data Developer Relationship Specialty Start Date End Date Octaviano Saul MD PCP - General Internal Medicine 10/12/13 documented as of this encounter
--- OUTSIDE RECORDS SUMMARY | 2024-10-05 12:50 | XMS_ITS | Encounter Summary ---
Author Organization [employer] Address 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
--- OUTSIDE RECORDS SUMMARY | 2024-10-05 12:50 | XMS_ITS | Encounter Summary ---
Author Organization [employer] Address 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
--- OUTSIDE RECORDS SUMMARY | 2024-10-05 12:50 | XMS_ITS | Encounter Summary ---
Author Organization [employer] Address [address] [place] [address] Care Team Providers Care Fiberglass Boat Assembly Supervisor Name Role Phone Octaviano Saul MD Primary Care Provider Unav ailable Encounter Details Date Type Department Care Team (Late st Contact Info) Description 06/09/[address] [facility] [address] [place] [id number] Matthew Richardson Social History Tobacco Use Types Packs/Day Years Used Date Smoking Tobacco: Never Assessed Sex and Gender Information Value Date Recorded Sex Assigned at Not on file Legal Sex Male 3:59 AM COMBO WELDER Gender Identity Not on file Sexual Orientation Not on file documented as of this encounter Plan of Treatment Not on file documented as of this encounter Visit Diagnoses Not on filedocumented in this encounter Care Teams Fiberglass Boat Assembly Supervisor Relationship Specialty Start Date End Date Octaviano Saul MD PCP - General Internal Medicine 10/12/13 documented as of this encounter
--- OUTSIDE RECORDS SUMMARY | 2024-10-05 12:50 | XMS_ITS | Encounter Summary ---
Author Organization [employer] Address [address] [place] [address] Care Team Providers Care Manager Sterile Processing Name Role Phone Octaviano Saul MD Primary Care Provider Unav ailable Encounter Details Date Type Department Care Team (Latest Contact Info) Description 10/07/2007 Outpatient Historical HIS 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
--- OUTSIDE RECORDS SUMMARY | 2024-10-05 12:51 | XMS_ITS | Encounter Summary ---
Author Organization [employer] Address [address] [place] [address] Care Team Providers Care Demurrage Agent Name Role Phone Octaviano Saul MD Primary Care Provider Unav ailable Encounter Details Date Type Department Care Team (Latest Contact Info) Description 08/09/2002 Outpatient Historical [facility] Dae Ferrera MD NO ADDRESS ON FILE PATHOL DISLOCAT-L/LEG (Primary Dx) Social History Tobacco Use Types Packs/Day Years Used Date Smoking Tobacco: Never Assessed Sex and Gender Information Value Date Recorded Sex Assigned at Not on file Legal Sex Male 3:59 AM EQUIPMENT TECH Gender Identity Not on file Sexual Orientation Not on file documented as of this encounter Plan of Treatment Not on file documented as of this encounter Visit Diagnoses Diagnosis 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
--- OUTSIDE RECORDS SUMMARY | 2024-10-05 12:51 | XMS_ITS | Clinical Summary ---
Author Organization [facility] Address [address] [place] [address] Phone Care Team Providers Care Director Environmental Name Role Phone Octaviano Saul MD Primary Care Provider Unav ailable Allergies No known active allergies Medications cyclobenzaprine (FLEXERIL) 10 mg tablet Take 1 Tablet (10 mg) by mouth 3 times daily as needed for pain. 20 Tablet 1 04/27/2018 2:52 PM CDT 04/25/2018 Active Active Problems Problem Noted Date Diagnosed Date Irritable bowel syndrome 10/16/2013 Elevated BP 07/07/2013 Hyperlipidemia 07/07/2013 Acne 07/07/2013 Immunizations Immunization Administration Dates Next Due (TDVAX)(7 YRS UP) TETANUS AN D DIPHTHERIA TOXOIDS, ADSORBED (2 LF OF TETANUS TOXOID AND 2 LF OF DIPHTHERIA TOXOID), 0.5ML (PF), IM 04/09/2006 Influenza Seasonal Unspecifi ed Formulation IM 05/16/2018,04/05/2017,03/25/2013,2011 Influenza Vaccine Quad Split 3+ Yrs Im 04/24/2016 Influenza Vaccine Quad Split 3+ Yrs Pf Im 03/28/2014 Influenza Vaccine Split 3+ Yrs PF IM 03/21/2015 Family History Medical History Relation Name Comments Healthy Daughter 1 Healthy Daughter 2 Healthy Daughter 3 Cancer Father Colon Cancer Father Unknown Father cancer - unknow n type Hypertension Mother Healthy Sister 1 Unknown Sister 2 Unknown Sister 3 Relation Name Status Comments Daughter 1 Alive Daughter 2 Alive Daughter 3 Alive Father Mother Alive Sister 1 Alive Sister 2 Sister 3 Social History Tobacco Use Types Packs/Day Years Used Date Smoking Tobacco: Former Cigarettes 1 10 0 07/07/1994 - 07/07/2004 Smokeless Tobacco: Never Alcohol Use Standard Drinks/Week Comments Yes 0 (1 standard drink = 0.6 oz pur e alcohol) 2 x year Sex and Gender Information Value Date Recorded Sex Assigned at Not on file Legal 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 Gender Identity Not on file Sexual Orientation Not on file Occupation Industry Job Start Date Job End Date Not on file Not on file Not on file Not on file Last Filed Vital Signs Vital Sign Reading Time Taken Comments Blood Pressure 136/90 09/20/2017 10:23 AM CDT Pulse 67 09/20/2017 10:23 AM CDT Temperature 36.4 C (97.5 F) 09/30/2016 8:20 AM CDT Respiratory Rate 20 09/30/2016 8:42 AM CDT Oxygen Saturation 98% 09/20/2017 10:23 AM CDT Inhaled Oxygen Concentration - - Weight 89.4 kg (197 lb) 09/20/2017 10:23 AM CDT Height 177.8 cm (5' 10 ) 09/20/2017 10:23 AM CDT Body Mass Index 28.27 09/20/2017 10:23 AM CDT Plan of Treatment Health Maintenance Due Date Last Done Comments HEPATITIS B VACCINES (1 of 3 - 19+ 3-dose series) 01/27/1992 DTAP/TDAP/TD VACCINES (1 - Tdap) 04/10/2006 04/09/2006 FIT-DNA Q 3 years 2018 FIT/FOBT Q 1 year 2018 Flex Sig/CT Colonography Q 5 years 2018 COLORECTAL SCREENING 09/30/2021 09/30/2016, 10/01/19 17 Colorectal Cancer Screening 09/30/2021 ZOSTER VACCINE (1 of 2) 2023 INFLUENZA VACCINE (#1) 2024 8, 04/05/2017, 04/24/2016, Additional history exists PNEUMOCOCCAL VACCINE 0-49 YEARS Aged Out No longer eligible based on patient's age to complete this topic Insurance RX MEDIMPACT Member Subscriber Plan / Payer (Ef fective for All Dates) Name:Sandy Giles Relation to Subscriber:Self Name:Sandy Giles Payer ID:Not on file Group ID:[id number] Type:RX Commercial Address: [address] Advance Directives For more information, please contact: [phone] * Full Code (Latest Code Status on File) Date Activated Date Inactivated Comments 09/30/2016 7:02 AM 09/30/2016 11:09 AM * Full Code Date Activated Date Inactivated Comments 11/08/2013 10:55 AM 11/08/2013 3:10 PM Care Teams Director Environmental Relationship Specialty Start Date End Date Octaviano Saul MD PCP - General Internal Medicine 10/12/13
--- OUTSIDE RECORDS SUMMARY | 2024-10-05 12:51 | XMS_ITS | Encounter Summary ---
Author Organization [employer] Address 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 Lab test performed by: [employer] [id number] [address] [facility] [place] [address] KEIRA HOFFMAN MD 06/21/2007 11:4 5 AM CATTLE KNOCKER us Gwen Ceballos MD CHEMISTRY ORDERABLES Edited INTERFACE SYSTEM Refer to clinic/hospital department documented in this encounter Visit Diagnoses Not on filedocumented in this encounter Care Teams Repair Department Manager Relationship Specialty Start Date End Date Octaviano Saul MD PCP - General Internal Medicine 10/12/13 documented as of this encounter
--- OUTSIDE RECORDS SUMMARY | 2024-10-05 12:51 | XMS_ITS | Encounter Summary ---
Author Organization [employer] Address [address] [place] [address] Care Team Providers Care Cured Meats Supervisor Name Role Phone Octaviano Saul MD Primary Care Provider Unav ailable Encounter Details Date Type Department Care Team (Late st Contact Info) Description 08/25/2007 Outpatient Historical HIS [facility] ORAL Palafox, MD Rupesh [address] [place] [address] Fever Social History Tobacco Use Types Packs/Day Years Used Date Smoking Tobacco: Never Assessed Sex and Gender Information Value Date Recorded Sex Assigned at Not on file Legal Sex Male 3:59 AM HOSPICE CARE SALES CONSULTANT Gender Identity Not on file Sexual Orientation Not on file documented as of this encounter Plan of Treatment Not on file documented as of this encounter Procedures Procedure Name Priority Date/Time Associated Diagnosis Comments CBC WITH DIFFERENTIAL Routine 08/25/2007 12:12 PM HOSPICE CARE SALES CONSULTANT SEDIMENTATION RATE Routine 08/25/2007 12 :12 PM HOSPICE CARE SALES CONSULTANT COMPREHENSIVE METABOLIC PANEL Routine 08/25/2007 12:12 PM HOSPICE CARE SALES CONSULTANT documented in this encounter Results * (ABNORMAL) COMPREHENSIVE METABOLIC PANEL (08/25/2007 12:12 PM HOSPICE CARE SALES CONSULTANT) CALCIUM 8.7 8.4 - 10.2 mg/dL [facility] ALBUMIN 4.0 3.4 - 4.8 g/dL [facility] CHLORIDE 101 96 - 108 mmol/L [facility] CREATININE 0.78 0.67 - 1.17 mg/dL [facility] ALT 175(H) 0 - 41 U/L [facility] SODIUM 140 135 - 145 mmol/L [facility] ALKALINE PHOSPHATASE 99 40 - 129 U/L [facility] CO2 29 22 - 30 mmol/L [facility] BILIRUBIN TOTAL 0.4 0.2 - 1.0 mg/dL [facility] POTASSIUM 3.7 3.5 - 4.9 mmol/L [facility] TOTAL PROTEIN 7.4 6.3 - 8.6 g/dL [facility] GLUCOSE 73 65 - 99 mg/dL [facility] AST 148(H) 12 - 38 U/L [facility] BUN 16 6 - 20 mg/dL [facility] GFR, >60 >=60 mL/min/1. 7 sq meter [facility] GFR >60 >=60 mL/min/1. 7 sq meter [facility] Comment: Estimated GFR rate interpretative information for both Americans and non- Americans is available on the [facility] Intranet at: [email or web address] Select: Lab Policies and Procedures Select: Reference Ranges - GFR Blood specimen (specimen) 08/25/2007 12:12 PM HOSPICE CARE SALES CONSULTANT 08/25/2007 12:30 PM HOSPICE CARE SALES CONSULTANT us Rupesh Palafox MD CHEMISTRY ORDERABLES Edited [facility] [address] [place] [id number] * (ABNORMAL) SEDIMENTATION RATE (08/25/2007 12:12 PM HOSPICE CARE SALES CONSULTANT) ESR (SEDIMENTATION RATE) 23(H) 0 - 20 mm/hr [facility] Blood specimen (specimen) 08/25/2007 12:12 PM HOSPICE CARE SALES CONSULTANT 08/25/2007 12:29 PM HOSPICE CARE SALES CONSULTANT us Rupesh Palafox MD HEMATOLOGY ORDERABLES Final Resu lt [facility] [address] [place] [address] * (ABNORMAL) CBC WITH DIFFERENTIAL (08/25/2007 12:12 PM HOSPICE CARE SALES CONSULTANT) Pathologist [facility] RDW-STDEV 41.8 37.1 - 48.7 fL [facility] RBC 4.73 4.50 - 5.40 M/uL [facility] MCHC 34.7 31.5 - 35.5 % [facility] PLATELETS 194 140 - 350 K/uL [facility] MCV 88.4 82.0 - 99.0 fL [facility] HEMOGLOBIN 14.5 13.6 - 16.5 g/dL [facility] RDW 13.0 11.5 - 14.5 % [facility] WBC 11.8(H) 4.0 - 9.8 K/uL [facility] MCH 30.7 27.2 - 32.6 pg [facility] MPV 10.1 9.3 - 12.4 fL [facility] HEMATOCRIT 41.8 40.0 - 48.0 % [facility] EOSINOPHIL ABSOLUTE 0.12 0.00 - 0.70 K/uL [facility] EOSINOPHILS 1 0 - 7 % [facility] LYMPHOCYTE ABSOLUTE 6.96(H) 0.70 - 4.50 K/uL [facility] PLATELET EST. Consistent w/ count Normal [facility] LYMPHOCYTES 45 16 - 45 % [facility] BASOPHILS ABSOLUTE 0.12 0.00 - 0.20 K/uL [facility] BASOPHILS 1 0 - 2 % [facility] MONOCYTE ABSOLUTE 0.47 0.10 - 1.30 K/uL [facility] MONOCYTES 4 3 - 13 % [facility] ANISOCYTOSIS Slight [facility] NEUTROPHIL ABSOLUTE 4.13 1.90 - 7.00 K/uL [facility] NEUTROPHILS 35(L) 45 - 70 % [facility] ATYPICAL LYMPHOCYTE 14(H) 0 - 5 % [facility] Blood specimen (specimen) 08/25/2007 12:12 PM HOSPICE CARE SALES CONSULTANT 08/25/2007 12:29 PM HOSPICE CARE SALES CONSULTANT Rupesh Palafox MD HEMATOLOGY ORDERABLES Edited [facility] [address] [place] [address] documented in this encounter Visit Diagnoses Diagnosis Fever and other physiologic disturbances of temperature regulation documented in this encounter Care Teams Cured Meats Supervisor Relationship Specialty Start Date End Date Octaviano Saul MD PCP - General Internal Medicine 10/12/13 documented as of this encounter
--- OUTSIDE RECORDS SUMMARY | 2024-10-05 12:51 | XMS_ITS | Encounter Summary ---
Author Organization [email or web address] Address 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
--- OUTSIDE RECORDS SUMMARY | 2024-10-05 12:51 | XMS_ITS | Encounter Summary ---
Author Organization [employer] Address 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
[2024-10-05 13:27] LABS: Basophils Absolute Auto 0.1 K/mm3 (0.0-0.1); Eosinophils Absolute Auto 0.2 K/mm3 (0-0.3); Eosinophils Percent Auto 3.3 % (0-4.4); Hematocrit 42.4 % (42.0-52.0); Immature Granulocyte Absolute 0.04 K/mm3 (0.00-0.031); Immature Granulocyte Percent A 0.6 % (0-0.5); Lymphocytes Absolute Auto 2.33 K/mm3 (0.9-3.2); Lymphocytes Percent Auto 32.3 % (18.3-44.2); Mean Corpuscular Hemoglobin 30.4 pg (26-34); Mean Corpuscular Volume 92.2 fl (80-100); Mean Platelet Volume 9.3 fl (7.4-10.4); Monocytes Absolute Auto 0.5 K/mm3 (0.1-0.6); Monocytes Percent Auto 7.5 % (2.6-8.5); Neutrophils Percent Auto 55.3 % (45.5-73.1); Platelet Count Result 209 k/mm3 (150-375); Red Cell Distribution Width 12.5 % (11.5-14.5); White Blood Count 7.2 K/mm3 (4.5-10.0)
[2024-10-05 13:37] LABS: Alanine Aminotransferase 74 U/L (6-50); Albumin Level 4.4 g/dL (3.5-5.1); Alkaline Phosphatase 62 U/L (38-126); Anion Gap 9 mmol/L (4-12); Aspartate Amino Transferase 48 U/L (17-59); Bilirubin,Total 0.7 mg/dL (0.2-1.3); Blood Urea Nitrogen 14 mg/dL (9-20); Carbon Dioxide 25 mmol/L (22-30); Chloride 106 mmol/L (98-107); Cholesterol 185 mg/dL (0-200); Estimated Glomerular Filt Rate > 60; Glucose 110 mg/dL (65-110); HDL Direct 40 mg/dL; Potassium 4.2 mmol/L (3.4-5.0); Sodium 140 mmol/L (137-145); Triglycerides 258 mg/dL (<150)
[2024-10-05 13:48] LABS: LDL Cholesterol Direct 102 mg/dL
[2024-10-05 14:06] LABS: Prostate Specific Antigen 0.9 ng/mL (< OR = 4.0)
== END 2024-10-05 12:41 | disposition home or self-care (01) ==
PROVIDERS: PCP Registered Nurse; Visit Provider Registered Nurse
DX: Z00.00 Encounter for general adult medical examination without abnormal findings (principal); I10 Essential (primary) hypertension
CPT/HCPCS: 36415; 80053; 80061; 84153; 84443; 85025; G0103

== ENCOUNTER 2025-06-11 09:52 | Outpatient (CLI) | payer OTHER, SELFPAY ==
--- NOTE | 2025-06-11 09:59 | ECHO_ITS ---
Patient Info Name: Ramin Giles Age: 50 years : 1975 Gender: Male Ht: 70 in Wt: 247 lbs BSA: 2.39 m2 HR: 73 bpm BP: 164 / 101 mmHg Technical Quality: Fair Exam Date: 06/11/2025 10:01 AM Patient Status: O Admit Date: 06/11/2025 Exam Type: CA echo doppler color flow Complete two-dimensional, color flow and Doppler transthoracic echocardiogram is performed. Snow Removing Supervisor: Elen Bass Attending Provider: Haroldo Dueñas DO Summary 1. Complete two-dimensional, color flow and Doppler transthoracic echocardiogram is performed. 2. Left ventricular chamber dimension is normal. 3. Left ventricular systolic function is normal, estimated at 60-65. 4. There is mild concentric increased left ventricular wall thickness. 5. The left ventricular diastolic function is grade I diastolic dysfunction. 6. E/e' 6 is not elevated. 7. Left atrial chamber dimension is mildly enlarged. Left Ventricle E/e' 6 is not elevated. Left ventricular chamber dimension is normal. Left ventricular systolic function is normal, estimated at 60-65. There is mild concentric increased left ventricular wall thickness. The left ventricular diastolic function is grade I diastolic dysfunction. Right Ventricle Right ventricular chamber dimension is normal. Right ventricular systolic function is normal. Left Atria Left atrial chamber dimension is mildly enlarged. Right Atria Right atrial chamber dimension is normal. Aortic Valve The aortic valve is trileaflet. There is no aortic valve stenosis. There is no aortic valve regurgitation. Pulmonic Valve There is no pulmonic regurgitation. Mitral Valve There is no mitral valve stenosis. There is no mitral valve regurgitation. Tricuspid Valve There is no tricuspid valve regurgitation. Pericardium/Pleural There is no pericardial effusion. Inferior Vena Cava Normal inferior vena cava with >50% collapse upon inspiration consistent with normal right atrial pressure, 5 mmHg. Aorta The aortic root size at the sinus of Valsalva is normal. Left Ventricular Outflow Tract Name Value Normal LVOT 2D LVOT Diameter 2.0 cm LVOT Doppler LVOT Peak Velocity 116 cm/s LVOT Peak Gradient 5 mmHg LVOT Mean Gradient 3 mmHg LVOT VTI 24 cm LVOT VTI/AV VTI Ratio 0.9 LVOT Stroke Volume 78 ml LVOT CO 5.5 l/min LVOT CI 2.3 l/min/m2 Pulmonic Valve Name Value Normal RVOT Doppler RVOT Peak Velocity 86 cm/s RVOT Peak Gradient 3 mmHg PV Doppler PV Peak Velocity 106 cm/s PV Peak Gradient 5 mmHg Mitral Valve Name Value Normal MV Diastolic Function MV E Peak Velocity 67 cm/s MV A Peak Velocity 75 cm/s MV E/A 0.9 MV Decel Time (PW) 119 ms Tricuspid Valve Name Value Normal Estimated PAP/RSVP RA Pressure 5 mmHg <=5 Aorta Name Value Normal Ascending Aorta Ao Root Diameter (MM) 3.7 cm Ao Root Diam Index (MM) 1.6 cm/m2 Aortic Valve Name Value Normal AV Doppler AV Peak Velocity 139 cm/s AV Peak Gradient 8 mmHg AV Mean Gradient 4 mmHg AV VTI 27 cm AV Area (Cont Eq VTI) 2.9 cm2 >=3.0 AV Area (Cont Eq Simon) 2.7 cm2 AV DI (Simon) 0.84 AV Regurgitation 2D LVOT Area 3.3 cm2 Ventricles Name Value Normal LV Dimensions 2D/MM IVS Diastolic Thickness (2D) 0.9 cm 0.6-1.0 IVS Diastole Thickness (MM) 0.8 cm 0.6-1.0 LVID Diastole (2D) 5.3 cm 4.2-5.8 LVID Diastole (MM) 5.6 cm 4.2-5.8 LVIW Diastolic Thickness (2D) 1.3 cm 0.6-1.0 LVIW Diastolic Thickness (MM) 0.9 cm 0.6-1.0 LVID Systole (2D) 3.0 cm 2.5-4.0 LVID Systole (MM) 2.8 cm 2.5-4.0 LVOT Diameter 2.0 cm LV Mass (2D Cubed) 220.68 g 88.00-224.00 LV Mass Index (2D Cubed) 92 g/m2 49-115 Relative Wall Thickness (2D) 0.48 <=0.42 LV Mass (MM Cubed) 185.64 g 88.00-224.00 LV Mass Index (MM Cubed) 78 g/m2 49-115 Relative Wall Thickness (MM) 0.34 LV Fractional Shortening/Ejection Fraction 2D/MM LV Fractional Shortening (2D) 44 % 25-43 LV Fractional Shortening (MM) 51 % 25-43 LV EF (MM Teichholz) 82 % LV EF (2D Teichholz) 75 % LV Diastolic Volume (4C MOD) 86 ml LV EF (4C MOD) 63 % LV Diastolic Volume (2C MOD) 104 ml LV EF (2C MOD) 55 % LV Diastolic Volume (BP MOD) 95 ml 62-150 LV Diastolic Volume Index (BP MOD) 40 ml/m2 34-74 LV Systolic Volume (BP MOD) 40 ml 21-61 LV Systolic Volume Index (BP MOD) 17 ml/m2 11-31 LV EF (BP MOD) 58 % 52-72 LV Diastolic Length (4C) 9.0 cm LV Systolic Length (4C) 8.0 cm LV Stroke Volume (4C MOD) 55 ml Atria Name Value Normal LA Dimensions LA Dimension (MM) 3.9 cm 3.0-4.0 Report Signatures
== END 2025-06-11 09:53 | disposition home or self-care (01) ==
PROVIDERS: PCP Registered Nurse; Visit Provider Internal Medicine Cardiovascular Disease
DX: I48.92 Unspecified atrial flutter (principal)
CPT/HCPCS: 93306

== ENCOUNTER 2025-06-25 09:37 | Outpatient (CLI) | payer OTHER, SELFPAY ==
--- NOTE | 2025-06-25 09:43 | EST_ITS ---
Patient Info Name: Ramin Giles Age: 50 years : 1975 Gender: Male Ht: 70 in Wt: 250 lbs BSA: 2.41 m2 HR: 73 bpm BP: 169 / 92 mmHg Exam Date: 06/25/2025 9:43 AM Patient Status: O Admit Date: 06/25/2025 Exam Type: CA stress test treadmill A treadmill exercise stress test was performed. Staff Attending Provider: Haroldo Dueñas DO Exercise Technologist: Ana Cristina Carrillo Exercise Physician: Haroldo Dueñas DO Summary 1. 1. Negative Micheal exercise stress test for ischemic ST changes by ECG criteria. 2. 2. Reduced functional capacity, achieving 7 METs of workload. 3. 3. Baseline hypertension with hypertensive response to exercise. 4. 4. Appropriate HR response to exercise. 5. 5. Appropriate HR recovery at 1 minute post exercise. 6. 6. No imaging with stress testing. 7. 7. Patient informed of the above results. Protocol: Micheal Stress ECG Details Stage: REST Duration (min): 0 min : 33 sec Speed (mph): 0.0 Grade (%): 0 HR (bpm): 73 SBP (mmHg): --- DBP (mmHg): --- METS: --- Stage: REST Duration (min): 11 min : 11 sec Speed (mph): 0.0 Grade (%): 0 HR (bpm): 80 SBP (mmHg): 169 DBP (mmHg): 92 METS: --- Stage: STAGE 1 Duration (min): 1 min : 0 sec Speed (mph): 1.7 Grade (%): 10 HR (bpm): 101 SBP (mmHg): 169 DBP (mmHg): 92 METS: --- Stage: STAGE 1 Duration (min): 2 min : 0 sec Speed (mph): 1.7 Grade (%): 10 HR (bpm): 114 SBP (mmHg): 169 DBP (mmHg): 92 METS: --- Stage: STAGE 1 Duration (min): 3 min : 0 sec Speed (mph): 1.7 Grade (%): 10 HR (bpm): 125 SBP (mmHg): 244 DBP (mmHg): 107 METS: --- Stage: STAGE 2 Duration (min): 1 min : 0 sec Speed (mph): 2.5 Grade (%): 12 HR (bpm): 137 SBP (mmHg): 249 DBP (mmHg): 88 METS: --- Stage: STAGE 2 Duration (min): 1 min : 22 sec Speed (mph): 2.5 Grade (%): 12 HR (bpm): 144 SBP (mmHg): 249 DBP (mmHg): 88 METS: --- Stage: RECOVERY Duration (min): 0 min : 37 sec Speed (mph): 0.0 Grade (%): 0 HR (bpm): 133 SBP (mmHg): 202 DBP (mmHg): 85 METS: --- Stage: RECOVERY Duration (min): 1 min : 37 sec Speed (mph): 0.0 Grade (%): 0 HR (bpm): 112 SBP (mmHg): 202 DBP (mmHg): 85 METS: --- Stage: RECOVERY Duration (min): 2 min : 37 sec Speed (mph): 0.0 Grade (%): 0 HR (bpm): 102 SBP (mmHg): 202 DBP (mmHg): 85 METS: --- Stage: RECOVERY Duration (min): 3 min : 37 sec Speed (mph): 0.0 Grade (%): 0 HR (bpm): 96 SBP (mmHg): 208 DBP (mmHg): 87 METS: --- Stage: RECOVERY Duration (min): 4 min : 32 sec Speed (mph): 0.0 Grade (%): 0 HR (bpm): 94 SBP (mmHg): 191 DBP (mmHg): 85 METS: --- Rest HR: 80 bpm Peak HR: 146 bpm Rest Sys BP: 169 mmHg Peak Sys BP: 249 mmHg Max Pred HR: 168 bpm % Max Pred HR: 87 % Target HR: 143 bpm Max RPP: 36,354 bpm*mmHg Castro Score: -6 BP Response: Patient exhibited a hypertensive response with stress Termination Reason: Maximal effort/unable to continue Cardiac Symptoms: High BP, SOB Max ST Seg Deviation: 2.10 mm Total Time: 4 min : 22 sec Rest Moreno BP: 92 mmHg Peak Moreno BP: 88 mmHg Angina Score: None Total METS: 7.1 Resting ECG Sinus rhythm. Stress ECG No ST changes. Arrhythmias None. Report Signatures
--- OUTSIDE RECORDS SUMMARY | 2025-06-25 10:44 | XMS_ITS | Encounter Summary ---
Author Organization [employer] Address 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
--- OUTSIDE RECORDS SUMMARY | 2025-06-25 10:44 | XMS_ITS | Encounter Summary ---
Author Organization [employer] Address 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
--- OUTSIDE RECORDS SUMMARY | 2025-06-25 10:44 | XMS_ITS | Encounter Summary ---
Author Organization [employer] Address 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
--- OUTSIDE RECORDS SUMMARY | 2025-06-25 10:44 | XMS_ITS | Clinical Summary ---
Author Organization [facility] Address [address] [place] [address] Care Team Providers Care Prosthetics Lab Technician Name Role Phone Armida Nicole SHETTY Primary Care Provider [phone] Allergies No known active allergies Medications multi vitamin/minerals tablet Take 1 tablet by mouth daily. Active ondansetron (ZOFRAN-ODT) 4 MG disintegrating tablet Take 1 tablet (4 mg total) by mouth every 6 (six) hours as needed for Nausea. 4 Active escitalopram (LEXAPRO) 20 MG tabletIndications:A nxiety Take 1 tablet (20 mg total) by mouth daily. 90 tablet 1 5 Active amLODIPine (NORVASC) 10 MG tabletIndications:P rimary hypertension TAKE 1 TABLET(10 MG) BY MOUTH DAILY 90 tablet 1 5 Active bisoprolol (ZEBETA) 10 MG tabletIndications:P rimary hypertension TAKE 1 TABLET(10 MG) BY MOUTH DAILY 90 tablet 5 Active Active Problems Problem Noted Date Diagnosed Date Anxiety 02/27/2022 Hypertension 03/29/2020 BMI 29.0-29.9,adult 03/29/2020 Irritable bowel syndrome 10/16/2013 Acne 07/07/2013 Elevated BP 07/07/2013 Hyperlipidemia 07/07/2013 Encounters Date Type Department Care Team Description 06/11/2025 Scan [facility] Scanned, [facility] Echo (SCAN) 06/07/2025 Scan [facility] Scanned, [facility] from Last 3 Months Immunizations Immunization Administration Dates Next Due Influenza (Generic) 05/16/2018, 7,03/21/2015,2012,03/31/2012 Influenza Adult (Generic) 04/23/2024,,04/24/2016,2013 PFIZER COVID-19 (ORIGINAL FORMULATION, PURPLE CAP) mRNA, LNP-S, PF, 30 MCG/0.3 ML DOSE 07/03/2021,07/14/2020,06/23/2020 PFIZER COVID-19 BIVALENT (12 +) mRNA, LNP-S, PF, 30 MCG/0.3 ML DOSE 06/23/2022 Td (Tenivac) preservative free 04/09/2006 Tdap (Generic) 05/05/2019 Family History Medical History Relation Comments Diabetes Daughter Alcohol Abuse Father Cancer Father Heart Disease Father Heart Disease Maternal Grandfather COPD Mother Hypertension Mother Relation Status Comments Daughter Father Alive Maternal Grandfather (Age 60) Maternal Grandmother Mother Alive Social History Tobacco Use Types Packs/Day Years Used Date Smoking Tobacco: Former Cigarettes 0.5 9 0 03/29/1999 - 03/29/2008 Smokeless Tobacco: Never Tobacco Cessation:Counseling Given: Yes Alcohol Use Standard Drinks/Week Comments Yes 10 (1 standard drink = 0.6 oz pu re alcohol) PHQ-2 Answer Date Recorded Patient Health Questionnaire-2 Score 0 06/22/2024 Sex and Gender Information Value Date Recorded Sex Assigned at Not on file Legal Sex Male 8:20 AM CDT Gender Identity Not on file Sexual Orientation Not on file 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 Not on file Not on file Last Filed Vital Signs Vital Sign Reading Time Taken Comments Blood Pressure 138/76 06/22/2024 9:21 AM CRIMINAL JUSTICE DEPARTMENT CHAIR Pulse 69 06/22/2024 9:21 AM CRIMINAL JUSTICE DEPARTMENT CHAIR Temperature 36.2 C (97.2 F) 06/22/2024 9:21 AM CRIMINAL JUSTICE DEPARTMENT CHAIR Respiratory Rate 16 06/22/2024 9:21 AM CRIMINAL JUSTICE DEPARTMENT CHAIR Oxygen Saturation 97% 06/22/2024 9:21 AM CRIMINAL JUSTICE DEPARTMENT CHAIR Inhaled Oxygen Concentration - - Weight 115.8 kg (255 lb 3.2 oz) 06/22/2024 9:21 AM CRIMINAL JUSTICE DEPARTMENT CHAIR Height 177.8 cm (5' 10) 06/22/2024 9:21 AM CRIMINAL JUSTICE DEPARTMENT CHAIR Body Mass Index 36.62 06/22/2024 9:21 AM CRIMINAL JUSTICE DEPARTMENT CHAIR Plan of Treatment Health Maintenance Due Date Last Done Comments Hepatitis C 1991 Hepatitis B Vaccines (1 of 3 - 19+ 3-dose series) 01/27/1992 Pneumococcal Vaccine: 50+ Years (1 of 1 - PCV) 2023 Zoster Vaccines (1 of 2) 2023 PHQ-2 (Physician [place]) 07/05/2024 06/22/2024 COVID-19 Vaccine ( - season) 2025 06/23/2022, 07/03/2021, 07/14/2020, Additional history exists Influenza Adult (#1) 2025 04/23/2024, 04/25/2023, 05/16/2018, Additional history exists Annual Physical 06/22/2025 06/22/2024, 08/15/2021 DTaP, Tdap and Td Vaccines (2 - Td or Tdap) 05/05/2029 05/05/2019, 04/09/2006 Colorectal Cancer Screening Colonoscopy (10 Years) 10/07/2033 10/08/2023 Hepatitis A Vaccines Aged Out No long er eligible based on patient's age to complete this topic Meningococcal B Vaccine Aged Out No l onger eligible based on patient's age to complete this topic Meningococcal Vaccine Aged Out No archie nataly eligible based on patient's age to complete this topic RSV Immunizations Under 20 Months Aged Out No longer eligible based on patient's age to complete this topic Procedures Procedure Name Priority Date/Time Associated Diagnosis Comments ECHO GENERIC (SCAN ORDER) 06/11/2025 COLONOSCOPY GENERIC (SCAN ORDER) 10/08/2023 from Last 3 Months or Most Recently Relevant to Health Maintenance Results * ECHO GENERIC (SCAN ORDER) (06/11/2025) Anatomical Region Laterality Modality Other 06/11/2025 [facility] Scanned SCANNING Final Resu lt * COLONOSCOPY GENERIC (SCAN ORDER) (10/08/2023) 10/08/2023 [facility] Scanned SCANNING Final Resu lt from Last 3 Months or Most Recently Relevant to Health Maintenance Insurance [employer] Care Teams Prosthetics Lab Technician Relationship Specialty Start Date End Date Nicloe Huffman APNP [address] [place] [id number] PCP - General NURSE PRACTITIONER 03/29/20
--- OUTSIDE RECORDS SUMMARY | 2025-06-25 10:44 | XMS_ITS | Encounter Summary ---
Author Organization [employer] Address 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 Male 3:59 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 Gender Identity Not on file Sexual Orientation Not on file documented as of this encounter Plan of Treatment Not on file documented as of this encounter Procedures Procedure Name Priority Date/Time Associated Diagnosis Comments HEPATIC FUNCTION PANEL Routine 09/09/2007 7:06 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 CBC WITH DIFFERENTIAL Routine 09/05/2007 1:43 PM 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 documented in this encounter Results * (ABNORMAL) HEPATIC FUNCTION PANEL (09/09/2007 7:06 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) BILIRUBIN TOTAL 0.5 0.2 - 1.0 mg/dL [facility] ALKALINE PHOSPHATASE 86 40 - 129 U/L [facility] BILIRUBIN DIRECT 0.1 0.0 - 0.3 mg/dL [facility] TOTAL PROTEIN 7.6 6.3 - 8.6 g/dL [facility] AST 36 12 - 38 U/L [facility] ALBUMIN 4.4 3.4 - 4.8 g/dL [facility] ALT 71(H) 0 - 41 U/L [facility] Blood specimen (specimen) 09/09/2007 7:06 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 09/09/2007 8:17 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 us Rupesh Palafox MD CHEMISTRY ORDERABLES Final Resul t [facility] [address] [place] [address] * (ABNORMAL) CBC WITH DIFFERENTIAL (09/05/2007 1:43 PM 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) MPV 9.5 9.3 - 12.4 fL [facility] HEMATOCRIT 42.4 40.0 - 48.0 % [facility] RDW-STDEV 44.6 37.1 - 48.7 fL [facility] RBC 4.67 4.50 - 5.40 M/uL [facility] MCHC 33.3 31.5 - 35.5 % [facility] MCV 90.8 82.0 - 99.0 fL [facility] PLATELETS 251 140 - 350 K/uL [facility] HEMOGLOBIN 14.1 13.6 - 16.5 g/dL [facility] RDW 13.5 11.5 - 14.5 % [facility] WBC 9.5 4.0 - 9.8 K/uL [facility] MCH 30.2 27.2 - 32.6 pg [facility] BASOPHILS 1 0 - 2 % [facility] BASOPHILS ABSOLUTE 0.08 0.00 - 0.20 K/uL [facility] MONOCYTES 9 3 - 13 % [facility] MONOCYTE ABSOLUTE 0.86 0.10 - 1.30 K/uL [facility] NEUTROPHILS 31(L) 45 - 70 % [facility] NEUTROPHIL ABSOLUTE 2.92 1.90 - 7.00 K/uL [facility] EOSINOPHILS 4 0 - 7 % [facility] EOSINOPHIL ABSOLUTE 0.37 0.00 - 0.70 K/uL [facility] LYMPHOCYTES 56(H) 16 - 45 % [facility] LYMPHOCYTE ABSOLUTE 5.28(H) 0.70 - 4.50 K/uL [facility] Blood specimen (specimen) 09/05/2007 1:43 PM 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 09/05/2007 1:55 PM 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 Rupesh Palafox MD HEMATOLOGY ORDERABLES Edited INTERFACE SYSTEM Refer to clinic/hospital department [facility] [address] [place] [address] documented in this encounter Visit Diagnoses Diagnosis Other malaise and fatigue documented in this encounter Care Teams Model Maker Relationship Specialty Start Date End Date Octaviano Saul MD PCP - General Internal Medicine 10/12/13 documented as of this encounter
--- OUTSIDE RECORDS SUMMARY | 2025-06-25 10:44 | XMS_ITS | Encounter Summary ---
Author Organization [employer] Address 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
--- OUTSIDE RECORDS SUMMARY | 2025-06-25 10:44 | XMS_ITS | Encounter Summary ---
Author Organization [employer] [facility] Address [address] [place] [address] Care Team Providers Care Warehouse Distribution Associate Name Role Phone Octaviano Saul MD Primary Care Provider Unav ailable Encounter Details Date Type Department Care Team (Late st Contact Info) Description 06/21/2007 Outpatient Historical HIS LAB, [address] Social History Tobacco Use Types Packs/Day Years Used Date Smoking Tobacco: Never Assessed Sex and Gender Information Value Date Recorded Sex Assigned at Not on file Legal Sex Male 3:59 AM TELE GROUT SEWER LINE REPAIRER Gender Identity Not on file Sexual Orientation Not on file documented as of this encounter Plan of Treatment Not on file documented as of this encounter Procedures Procedure Name Priority Date/Time Associated Diagnosis Comments HEPATITIS B SURFACE AB, QUAL Routine 06/21/2007 11:45 AM TELE GROUT SEWER LINE REPAIRER documented in this encounter Results * HEPATITIS B SURFACE AB (06/21/2007 11:45 AM TELE GROUT SEWER LINE REPAIRER) HEPATITIS B SURFACE AB 12 mIU/mL INTERFACE SYSTEM Comment: PATIENT HAS IMMUNITY TO HEPATITIS B VIRUS. Lab test performed by: [employer] [address] [address] KEIRA HOFFMAN MD 06/21/2007 11:4 5 AM TELE GROUT SEWER LINE REPAIRER us Gwen Ceballos MD CHEMISTRY ORDERABLES Edited INTERFACE SYSTEM Refer to clinic/hospital department documented in this encounter Visit Diagnoses Not on filedocumented in this encounter Care Teams Warehouse Distribution Associate Relationship Specialty Start Date End Date Octaviano Saul MD PCP - General Internal Medicine 10/12/13 documented as of this encounter
--- OUTSIDE RECORDS SUMMARY | 2025-06-25 10:44 | XMS_ITS | Encounter Summary ---
Author Organization [employer] Address [address] [place] [address] Care Team Providers Care Practice Lead Name Role Phone Octaviano Saul MD Primary Care Provider Unav ailable Encounter Details Date Type Department Care Team (Latest Contact Info) Description 06/09/2004 Outpatient Historical HIS [facility] Javy, MD Rupesh [address] [place] [address] CHEST PAIN NOS (Primary Dx) Social History Tobacco Use Types Packs/Day Years Used Date Smoking Tobacco: Never Assessed Sex and Gender Information Value Date Recorded Sex Assigned at Not on file Legal Sex Male 3:59 AM COUNSELING PSYCHOLOGIST Gender Identity Not on file Sexual Orientation Not on file documented as of this encounter Plan of Treatment Not on file documented as of this encounter Visit Diagnoses Diagnosis Chest pain, unspecified- Primary documented in this encounter Care Teams Practice Lead Relationship Specialty Start Date End Date Octaviano Saul MD PCP - General Internal Medicine 10/12/13 documented as of this encounter
--- OUTSIDE RECORDS SUMMARY | 2025-06-25 10:44 | XMS_ITS | Encounter Summary ---
Author Organization [facility] Address [address] [place] [address] Care Team Providers Care Xerox Machine Mechanic Name Role Phone Octaviano Saul MD Primary Care Provider Unav ailable Encounter Details Date Type Department Care Team (Latest Contact Info) Description 08/26/2007 Outpatient Historical HIS [facility] ORAL Palafox, MD Rupesh [address] [address] [place] [address] Acute Pharyngitis Social History Tobacco Use Types Packs/Day Years Used Date Smoking Tobacco: Never Assessed Sex and Gender Information Value Date Recorded Sex Assigned at Not on file Legal Sex Male 3:59 AM ORTHOPEDICS PEDIATRIC PHYSICIAN Gender Identity Not on file Sexual Orientation Not on file documented as of this encounter Plan of Treatment Not on file documented as of this encounter Procedures Procedure Name Priority Date/Time Associated Diagnosis Comments HEMATOLOGY COMMENT Routine 08/26/2007 2: 56 PM ORTHOPEDICS PEDIATRIC PHYSICIAN MONONUCLEOSIS SCREEN Routine 08/26/2007 2:56 PM ORTHOPEDICS PEDIATRIC PHYSICIAN documented in this encounter Results * HEMATOLOGY COMMENT (08/26/2007 2:56 PM ORTHOPEDICS PEDIATRIC PHYSICIAN) RESULT COMMENT HEMATOLOGY Re:_ : _. REPORTED RESULTS 08-29-07 01:53PM [facility] Blood specimen (specimen) 08/26/2007 2:56 PM ORTHOPEDICS PEDIATRIC PHYSICIAN 08/26/2007 3:30 PM ORTHOPEDICS PEDIATRIC PHYSICIAN Rupesh Palafox MD HEMATOLOGY ORDERABLES Final Resu lt Performing Organization Address [facility] Co de Phone Number [facility] [address] [place] [address] * (ABNORMAL) MONONUCLEOSIS SCREEN (08/26/2007 2:56 PM ORTHOPEDICS PEDIATRIC PHYSICIAN) MONONUCLEOSIS SCREEN Positive( A) Negative [facility] Blood specimen (specimen) 08/26/2007 2:56 PM ORTHOPEDICS PEDIATRIC PHYSICIAN 08/26/2007 3:30 PM ORTHOPEDICS PEDIATRIC PHYSICIAN Rupesh Palafox MD HEMATOLOGY ORDERABLES Final Resu lt Performing Organization Address [facility] de Phone Number [facility] [address] [address] documented in this encounter Visit Diagnoses Diagnosis Acute pharyngitis documented in this encounter Care Teams Xerox Machine Mechanic Relationship Specialty Start Date End Date Octaviano Saul MD PCP - General Internal Medicine 10/12/13 documented as of this encounter
--- OUTSIDE RECORDS SUMMARY | 2025-06-25 10:44 | XMS_ITS | Encounter Summary ---
Author Organization [employer] Address [address] [place] [address] Care Team Providers Care Solderer Assembler Name Role Phone Octaviano Saul MD Primary [...] on file Legal Sex Male 3:59 AM MANAGER FINANCIAL Gender Identity Not on file Sexual Orientation Not on file documented as of this encounter Plan of Treatment Not on file documented as of this encounter Visit Diagnoses Diagnosis Pain in joint, lower leg- Primary documented in this encounter Care Teams Solderer Assembler Relationship Specialty Start Date End Date Octaviano Saul MD PCP - General Internal Medicine 10/12/13 documented as of this encounter
--- OUTSIDE RECORDS SUMMARY | 2025-06-25 10:44 | XMS_ITS | Encounter Summary ---
Author Organization [employer] Address [address] [place] [address] Care Team Providers Care Stitch Burnisher Name Role Phone Octaviano Saul MD Primary Care Provider Unav ailable Encounter Details Date Type Department Care Team (Late st Contact Info) Description 06/09/[address] [facility] Support Serv. ([facility]) [address] [place] [address] Matthew Richardson Social History Tobacco Use Types Packs/Day Years Used Date Smoking Tobacco: Never Assessed Sex and Gender Information Value Date Recorded Sex Assigned at Not on file Legal Sex Male 3:59 AM PTA Gender Identity Not on file Sexual Orientation Not on file documented as of this encounter Plan of Treatment Not on file documented as of this encounter Visit Diagnoses Not on filedocumented in this encounter Care Teams Stitch Burnisher Relationship Specialty Start Date End Date Octaviano Saul MD PCP - General Internal Medicine 10/12/13 documented as of this encounter
--- OUTSIDE RECORDS SUMMARY | 2025-06-25 10:44 | XMS_ITS | Clinical Summary ---
Author Organization [facility] Address [address] [place] [address] Phone Care Team Providers Care Hospital Tray Service Worker Name Role Phone Octaviano Saul MD Primary [...] on file Legal Sex Male 3:59 AM PRODUCTION STAGE MANAGER Gender Identity Not on file Sexual [...] 10:23 AM CDT Height 177.8 cm (5' 10) 09/20/2017 10:23 AM CDT Body Mass Index 28.27 09/20/2017 10:23 AM CDT Plan of Treatment Health Maintenance Due Date Last Done Comments HEPATITIS B VACCINES (1 of 3 - 19+ 3-dose series) 01/27/1992 DTAP/TDAP/TD VACCINES (1 - Tdap) 04/10/2006 04/09/20 06 FIT-DNA Q 3 years 2018 FIT/FOBT Q 1 year 2018 Flex Sig/CT Colonography Q 5 years 2018 COLORECTAL SCREENING 09/30/2021 09/30/2016, 10/01/19 17 Colorectal Cancer Screening 09/30/2021 ZOSTER VACCINE (1 of 2) 2023 INFLUENZA VACCINE (#1) 2025 8, 04/05/2017, 04/24/2016, Additional history exists Insurance RX MEDIMPACT Member Subscriber Plan / Payer (Ef fective for All Dates) Name:Sandy Giles Relation to Subscriber:Self Name:Sandy Giles Payer ID:Not on file Group ID:[id number] Type:RX Commercial Address: [address] [address] Advance Directives For more information, please contact: [phone] * Full Code (Latest Code Status on File) Date Activated Date Inactivated Comments 09/30/2016 7:02 AM 09/30/2016 11:09 AM * Full Code Date Activated Date Inactivated Comments 11/08/2013 10:55 AM 11/08/2013 3:10 PM Care Teams Hospital Tray Service Worker Relationship Specialty Start Date End Date Octaviano Saul MD PCP - General Internal Medicine 10/12/13
--- OUTSIDE RECORDS SUMMARY | 2025-06-25 10:44 | XMS_ITS | Encounter Summary ---
Author Organization [facility] Address [address] [place] [address] Care Team Providers Care Eligibility Supervisor Name Role Phone Nicole Huffman Primary Care Provider [phone] Encounter Details Date Type Department Care Team (Late st Contact Info) Description 09/13/2021 [employer] Message Enc [facility] Medical Group Family & Internal Medicine [facility] [address] [place] [address] Nicole Huffman APNP 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 No / Unsure 08/15/2021 10:11 AM SPEECH LANGUAGE PATHOLOGIST documented as of this encounter Plan of Treatment Not on file documented as of this encounter Visit Diagnoses Not on filedocumented in this encounter Additional Health Concerns Assessment Noted Time PHQ-9 Depression Total Score: 0 03/29/20 20 11:38 AM CDT documented as of this encounter Care Teams Eligibility Supervisor Relationship Specialty Start Date End Date Nicole Huffman APNP [address] [place] [address] PCP - General NURSE PRACTITIONER 03/29/20 documented as of this encounter
--- OUTSIDE RECORDS SUMMARY | 2025-06-25 10:44 | XMS_ITS | Encounter Summary ---
Author Organization [employer] Address [address] [place] [address] Care Team Providers Care Actuarial Manager Name Role Phone Octaviano Saul MD Primary Care Provider Unav ailable Encounter Details Date Type Department Care Team (Late st Contact Info) Description 05/10/2002 Outpatient Historical HIS [facility] OR[facility] Palafox, MD Rupesh [address] [facility] [address] [place] [address] Social History Tobacco Use Types Packs/Day Years Used Date Smoking Tobacco: Never Assessed Sex and Gender Information Value Date Recorded Sex Assigned at Not on file Legal Sex Male 3:59 AM SIDING COREBOARD INSPECTOR Gender Identity Not on file Sexual Orientation Not on file documented as of this encounter Plan of Treatment Not on file documented as of this encounter Visit Diagnoses Not on filedocumented in this encounter Care Teams Actuarial Manager Relationship Specialty Start Date End Date Octaviano Saul MD PCP - General Internal Medicine 10/12/13 documented as of this encounter
--- OUTSIDE RECORDS SUMMARY | 2025-06-25 10:44 | XMS_ITS | Encounter Summary ---
Author Organization [facility] Address [address] [place] [address] Care Team Providers Care Inspector Packer Name Role Phone Nicole Huffman Primary Care Provider [phone] Encounter Details Date Type Department Care Team (Late st Contact Info) Description 02/15/2022 [employer] Message Enc [facility] Medical Group Family & Internal Medicine [facility] [address] [place] [address] Nicole Huffman APNP [facility] [place], [place] [id number] Increase in dosage of meds Social History Tobacco Use Types Packs/Day Years [...] file Not on file Not on file documented as of this encounter Plan of Treatment Not on file documented as of this encounter Visit Diagnoses Not on filedocumented in this encounter Additional Health Concerns Assessment Noted Time PHQ-9 Depression Total Score: 0 03/29/20 20 11:38 AM CDT documented as of this encounter Care Teams Inspector Packer Relationship Specialty Start Date End Date Nicole Huffman APNP [address] [place] [address] PCP - General NURSE PRACTITIONER 03/29/20 documented as of this encounter
--- OUTSIDE RECORDS SUMMARY | 2025-06-25 10:44 | XMS_ITS | Encounter Summary ---
Author Organization [employer] Address 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
--- OUTSIDE RECORDS SUMMARY | 2025-06-25 10:45 | XMS_ITS | Encounter Summary ---
Author Organization [facility] Address [address] [place] [address] Care Team Providers Care Die Designer Name Role Phone Nicole Huffman Primary Care Provider [phone]- [phone] Encounter Details Date Type Department Care Team (Late st Contact Info) Description 07/04/2020 [employer] Message Enc [facility] Medical Group Family & Internal Medicine [facility] [address] [place] [address] Nicole Huffman APNP [address] [place] [address] RE: Medication Questions Social History Tobacco Use Types Packs/Day Years [...] documented as of this encounter Care Teams Die Designer Relationship Specialty Start Date End Date Nicole Huffman APNP [facility] [place] [address] PCP - General NURSE PRACTITIONER 03/29/20 documented as of this encounter
--- OUTSIDE RECORDS SUMMARY | 2025-06-25 10:45 | XMS_ITS | Encounter Summary ---
Author Organization [email or web address] Address [address] [place] [address] Care Team Providers Care Farmworker Dairy Name Role Phone Octaviano Saul MD Primary Care Provider Unav ailable Encounter Details Date Type Department Care Team (Late st Contact Info) Description 08/25/2007 Outpatient Historical HIS [facility] Palafox, MD Rupesh [address] [facility] [address] [place] [address] Fever Social History Tobacco Use Types Packs/Day Years Used Date Smoking Tobacco: Never Assessed Sex and Gender Information Value Date Recorded Sex Assigned at Not on file Legal Sex Male 3:59 AM AUTOMOBILE WRECKER Gender Identity Not on file Sexual Orientation Not on file documented as of this encounter Plan of Treatment Not on file documented as of this encounter Procedures Procedure Name Priority Date/Time Associated Diagnosis Comments CBC WITH DIFFERENTIAL Routine 08/25/2007 12:12 PM AUTOMOBILE WRECKER SEDIMENTATION RATE Routine 08/25/2007 12 :12 PM AUTOMOBILE WRECKER COMPREHENSIVE METABOLIC PANEL Routine 08/25/2007 12:12 PM AUTOMOBILE WRECKER documented in this encounter Results * (ABNORMAL) COMPREHENSIVE METABOLIC PANEL (08/25/2007 12:12 PM AUTOMOBILE WRECKER) CALCIUM 8.7 8.4 - 10.2 mg/dL [facility] ALBUMIN 4.0 3.4 - 4.8 g/dL [facility] CHLORIDE 101 96 - 108 mmol/L [facility] CREATININE 0.78 0.67 - 1.17 mg/dL [facility] ALT 175(H) 0 - 41 U/L [facility] SODIUM 140 135 - 145 mmol/L [facility] ALKALINE PHOSPHATASE 99 40 - 129 U/L [facility] CO2 29 22 - 30 mmol/L [facility] BILIRUBIN TOTAL 0.4 0.2 - 1.0 mg/dL [facility] POTASSIUM 3.7 3.5 - 4.9 mmol/L [facility] TOTAL PROTEIN 7.4 6.3 - 8.6 g/dL [facility] GLUCOSE 73 65 - 99 mg/dL [facility] AST 148(H) 12 - 38 U/L [facility] BUN 16 6 - 20 mg/dL [facility] GFR, >60 >=60 mL/min/1. 7 sq meter [facility] GFR >60 >=60 mL/min/1. 7 sq meter [facility] Comment: Estimated GFR rate interpretative information for both Americans and non- Americans is available on the [facility] Intranet at: [email or web address] Select: Lab Policies and Procedures Select: Reference Ranges - GFR Blood specimen (specimen) 08/25/2007 12:12 PM AUTOMOBILE WRECKER 08/25/2007 12:30 PM AUTOMOBILE WRECKER Rupesh Palafox MD CHEMISTRY ORDERABLES Edited [facility] [address] [place] [address] * (ABNORMAL) SEDIMENTATION RATE (08/25/2007 12:12 PM AUTOMOBILE WRECKER) Pathologist [facility] ESR (SEDIMENTATION RATE) 23(H) 0 - 20 mm/hr [facility] Blood specimen (specimen) 08/25/2007 12:12 PM AUTOMOBILE WRECKER 08/25/2007 12:29 PM AUTOMOBILE WRECKER Rupesh Palafox MD HEMATOLOGY ORDERABLES Final Resu lt [facility] [address] [place] [address] * (ABNORMAL) CBC WITH DIFFERENTIAL (08/25/2007 12:12 PM AUTOMOBILE WRECKER) [facility] RDW-STDEV 41.8 37.1 - 48.7 fL [facility] RBC 4.73 4.50 - 5.40 M/uL [facility] MCHC 34.7 31.5 - 35.5 % [facility] PLATELETS 194 140 - 350 K/uL [facility] MCV 88.4 82.0 - 99.0 fL [facility] HEMOGLOBIN 14.5 13.6 - 16.5 g/dL [facility] RDW 13.0 11.5 - 14.5 % [facility] WBC 11.8(H) 4.0 - 9.8 K/uL [facility] MCH 30.7 27.2 - 32.6 pg [facility] MPV 10.1 9.3 - 12.4 fL [facility] HEMATOCRIT 41.8 40.0 - 48.0 % [facility] EOSINOPHIL ABSOLUTE 0.12 0.00 - 0.70 K/uL [facility] EOSINOPHILS 1 0 - 7 % [facility] LYMPHOCYTE ABSOLUTE 6.96(H) 0.70 - 4.50 K/uL [facility] PLATELET EST. Consistent w/ count Normal [facility] LYMPHOCYTES 45 16 - 45 % [facility] BASOPHILS ABSOLUTE 0.12 0.00 - 0.20 K/uL [facility] BASOPHILS 1 0 - 2 % [facility] MONOCYTE ABSOLUTE 0.47 0.10 - 1.30 K/uL [facility] MONOCYTES 4 3 - 13 % [facility] ANISOCYTOSIS Slight [facility] NEUTROPHIL ABSOLUTE 4.13 1.90 - 7.00 K/uL [facility] NEUTROPHILS 35(L) 45 - 70 % [facility] ATYPICAL LYMPHOCYTE 14(H) 0 - 5 % [facility] Blood specimen (specimen) 08/25/2007 12:12 PM AUTOMOBILE WRECKER 08/25/2007 12:29 PM AUTOMOBILE WRECKER Rupesh Palafox MD HEMATOLOGY ORDERABLES Edited [facility] [address] [place] [address] documented in this encounter Visit Diagnoses Diagnosis Fever and other physiologic disturbances of temperature regulation documented in this encounter Care Teams Farmworker Dairy Relationship Specialty Start Date End Date Octaviano Saul MD PCP - General Internal Medicine 10/12/13 documented as of this encounter
--- OUTSIDE RECORDS SUMMARY | 2025-06-25 10:45 | XMS_ITS | Encounter Summary ---
Author Organization [facility] Address [address] [place] [address] Care Team Providers Care Furrier Shop Supervisor Name Role Phone Nicole Huffman Primary Care Provider [phone]- [phone] Encounter Details Date Type Department Care Team (Late st Contact Info) Description 07/07/2022 [employer] Message Enc [facility] Medical Group Family & Internal Medicine [facility] [address] [place] [address] Nicole Huffman APNP [facility] [place], [place] [phone] Insurance issues Social History Tobacco Use Types Packs/Day Years [...] documented as of this encounter Care Teams Furrier Shop Supervisor Relationship Specialty Start Date End Date Nicole Huffman APNP [address] [place] [address] PCP - General NURSE PRACTITIONER 03/29/20 documented as of this encounter
--- OUTSIDE RECORDS SUMMARY | 2025-06-25 10:45 | XMS_ITS | Encounter Summary ---
Author Organization [facility] Address [address] [place] [address] Care Team Providers Care Compliance Lead Name Role Phone Nicole Huffman Primary Care Provider [phone]- [phone] Encounter Details Date Type Department Care Team (Late st Contact Info) Description 08/16/2022 [employer] Message Enc [facility] Medical Group Family & Internal Medicine [facility] [address] [place] [address] Nicole Huffman APNP [facility] [place], [place] [phone] BP meds Social History Tobacco Use Types Packs/Day [...] documented as of this encounter Care Teams Compliance Lead Relationship Specialty Start Date End Date Nicole Huffman APNP [facility] [place] [address] PCP - General NURSE PRACTITIONER 03/29/20 documented as of this encounter
== END 2025-06-25 09:38 | disposition home or self-care (01) ==
LOC: ANHCARD 09:38
PROVIDERS: PCP Registered Nurse; Visit Provider Internal Medicine Cardiovascular Disease
DX: I48.92 Unspecified atrial flutter (principal)
CPT/HCPCS: 93017

== ENCOUNTER 2025-07-04 10:40 | Emergency (ER) | payer OTHER, SELFPAY ==
--- NOTE | 2025-07-04 10:42 | ED.GENADULT ---
HPI - General Adult General Chief complaint: Recheck/Abnormal Lab/Rx Stated complaint: med refill Time Seen by Provider: 07/04/25 10:42 History of Present Illness HPI narrative: 50-year-old male presenting to the emergency department for evaluation for increased anxiety seeking medication for worsen anxiety. Patient has been self medicating with alcohol nightly. Patient has been drinking approximately 6-8 pt of alcohol a night. Patient is going to refrain from alcohol from this point on and patient is seeking medication to help with the anxiety and to help with potential alcohol withdrawal. Patient denies any significant symptoms of alcohol withdrawal. Patient denies any prior history of alcohol withdrawal. Patient states he does have some diaphoresis at night but this is also potentially secondary to situational anxiety. Patient denies any homicidal suicidal ideation. Patient denies any thoughts of self-harm. Related Data Home Medications ?Medication ?Instructions ?Recorded ?Confirmed ?Last Taken ?Type amlodipine 5 mg tablet 5 mg PO DAILY 07/09/23 06/07/25 10/07/23 History aspirin 325 mg tablet,delayed 325 mg PO DAILY 07/09/23 06/07/25 10/07/23 History release bisoprolol fumarate 10 mg tablet 10 mg PO DAILY 07/09/23 06/07/25 10/07/23 History Allergies Allergy/AdvReac Type Severity Reaction Status Date / Time No Known Allergies Allergy Verified 10/08/23 06:22 Review of Systems Review of Systems: All systems reviewed & are unremarkable except as noted in HPI and below PMFSH Past Medical History Medical History (Updated 07/04/25 @ 11:06 by Carlito Hernandez MD) Family history of colon cancer in father Atrial flutter Surgical History Surgical History No history of previous surgery Family History Family History Other Diabetes mellitus Social History Social History Smoking status: Never smoker Alcohol intake: current Drinks per week: 4 Substance use: never Substance use type: does not use Living arrangements: with family Spiritual care concerns: No Exam Narrative: APPEARANCE: Well appearing, no pain, no distress, well-nourished. HEAD: normocephalic, atraumatic. EYES: PERRLA/EOMI, conjunctivae clear. NECK: Supple. No adenopathy, no masses. RESPIRATORY: Airway patent, respirations nonlabored. Clear to auscultation bilaterally, no rales, rhonchi, wheezing. CARDIOVASCULAR: Regular rate and rhythm without murmurs rubs or gallops. ABDOMINAL: Soft, nontender, nondistended, normal bowel sounds MUSCULOSKELETAL: Moves all extremities. Strength/ROM intact, No edema, No calf tenderness. NEURO: Alert. Cranial nerves II through XII intact. Good gait. Good coordination SKIN: Warm, dry. Normal Color PSYCHIATRIC: Normal affect/mood. Course Vital Signs Vital signs: Vital Signs Temperature 97.8 F 07/04/25 10:51 Pulse Rate 70 07/04/25 10:51 Respiratory Rate 20 07/04/25 10:51 Blood Pressure 168/99 H 07/04/25 10:51 Pulse Oximetry 97 07/04/25 10:51 Oxygen Delivery Room Air 07/04/25 10:51 Temperature 97.8 F 07/04/25 10:51 Pulse Rate 70 07/04/25 10:51 Respiratory Rate 16 07/04/25 11:10 Blood Pressure 148/99 H 07/04/25 10:51 Pulse Oximetry 98 07/04/25 10:51 Oxygen Delivery Room Air 07/04/25 10:51 [facility] MDM Narrative Medical decision making narrative: 50-year-old male presents emergency department for evaluation for anxiety treatment. Patient denies any concern for self-harm. Patient will be started on Librium to help with his alcohol cessation. Patient was encouraged to continue to have close follow-up with primary care physician and with his healthcare providers. All questions concerns were addressed patient was well-appearing at time of discharge. Differential Diagnosis Differential Diagnosis: Alcohol abuse, alcohol withdrawal, anxiety, depression, SI, HI Discharge Plan Discharge Clinical Impression: Anxiety Patient Disposition: Home Condition: Stable Instructions: Antibiotic Form Additional Instructions: Have close follow-up with your primary care physician. If you have any worsening symptoms and please call or return to the emergency department. Patient Language: Bangladeshi Prescriptions: New chlordiazepoxide HCl 25 mg capsule 25 mg PO TID PRN (Reason: anxiety) 7 Days Qty: 21 0RF No Action bisoprolol fumarate 10 mg tablet 10 mg PO DAILY amlodipine 5 mg tablet 5 mg PO DAILY aspirin 325 mg tablet,delayed release (DR/EC) 325 mg PO DAILY flecainide 100 mg tablet 100 mg PO Q12H Qty: 60 5RF flecainide 100 mg tablet 100 mg PO Q12H Qty: 60 5RF Follow-up/Referrals: Armida,LOREN Rivera [Primary Care Provider]
[2025-07-04 10:51] VITALS: BP 148/99; BP 168/99; PULSE 70; RESP 16; RESP 20; TEMP 36.6; O2SAT 97; O2SAT 98
--- OUTSIDE RECORDS SUMMARY | 2025-07-04 10:52 | XMS_ITS | Encounter Summary ---
Author Organization [employer] Address [address] [place] [address] Care Team Providers Care Application Dba Name Role Phone Octaviano Saul MD Primary Care Provider Unav ailable Encounter Details Date Type Department Care Team (Latest Contact Info) Description 09/05/2007 Outpatient Historical HIS [facility] Palafox, MD Rupesh [address] [facility] [address] [place] [address] Other Malaise and Fatigue Social History Tobacco Use Types Packs/Day Years Used Date Smoking Tobacco: Never Assessed Sex and Gender Information Value Date Recorded Sex Assigned at Not on file Legal Sex Male 3:59 AM OPTICAL INSTRUMENT INSPECTOR Gender Identity Not on file Sexual Orientation Not on file documented as of this encounter Plan of Treatment Not on file documented as of this encounter Procedures Procedure Name Priority Date/Time Associated Diagnosis Comments HEPATIC FUNCTION PANEL Routine 09/09/2007 7:06 AM OPTICAL INSTRUMENT INSPECTOR CBC WITH DIFFERENTIAL Routine 09/05/2007 1:43 PM OPTICAL INSTRUMENT INSPECTOR documented in this encounter Results * (ABNORMAL) HEPATIC FUNCTION PANEL (09/09/2007 7:06 AM OPTICAL INSTRUMENT INSPECTOR) BILIRUBIN TOTAL 0.5 0.2 - 1.0 mg/dL [facility] ALKALINE PHOSPHATASE 86 40 - 129 U/L [facility] BILIRUBIN DIRECT 0.1 0.0 - 0.3 mg/dL [facility] TOTAL PROTEIN 7.6 6.3 - 8.6 g/dL [facility] AST 36 12 - 38 U/L [facility] ALBUMIN 4.4 3.4 - 4.8 g/dL [facility] ALT 71(H) 0 - 41 U/L [facility] Blood specimen (specimen) 09/09/2007 7:06 AM OPTICAL INSTRUMENT INSPECTOR 09/09/2007 8:17 AM OPTICAL INSTRUMENT INSPECTOR us Rupesh Palafox MD CHEMISTRY ORDERABLES Final Resul t [facility] [address] [place] [address] * (ABNORMAL) CBC WITH DIFFERENTIAL (09/05/2007 1:43 PM OPTICAL INSTRUMENT INSPECTOR) MPV 9.5 9.3 - 12.4 fL [facility] HEMATOCRIT 42.4 40.0 - 48.0 % [facility] RDW-STDEV 44.6 37.1 - 48.7 fL [facility] RBC 4.67 4.50 - 5.40 M/uL [facility] MCHC 33.3 31.5 - 35.5 % [facility] MCV 90.8 82.0 - 99.0 fL [facility] PLATELETS 251 140 - 350 K/uL [facility] HEMOGLOBIN 14.1 13.6 - 16.5 g/dL [facility] RDW 13.5 11.5 - 14.5 % [facility] WBC 9.5 4.0 - 9.8 K/uL [facility] MCH 30.2 27.2 - 32.6 pg [facility] BASOPHILS 1 0 - 2 % [facility] BASOPHILS ABSOLUTE 0.08 0.00 - 0.20 K/uL [facility] MONOCYTES 9 3 - 13 % [facility] MONOCYTE ABSOLUTE 0.86 0.10 - 1.30 K/uL [facility] NEUTROPHILS 31(L) 45 - 70 % [facility] NEUTROPHIL ABSOLUTE 2.92 1.90 - 7.00 K/uL [facility] EOSINOPHILS 4 0 - 7 % [facility] EOSINOPHIL ABSOLUTE 0.37 0.00 - 0.70 K/uL [facility] LYMPHOCYTES 56(H) 16 - 45 % [facility] LYMPHOCYTE ABSOLUTE 5.28(H) 0.70 - 4.50 K/uL [facility] Blood specimen (specimen) 09/05/2007 1:43 PM OPTICAL INSTRUMENT INSPECTOR 09/05/2007 1:55 PM OPTICAL INSTRUMENT INSPECTOR Rupesh Palafox MD HEMATOLOGY ORDERABLES Edited INTERFACE SYSTEM Refer to clinic/hospital department [facility] [address] [place] [address] documented in this encounter Visit Diagnoses Diagnosis Other malaise and fatigue documented in this encounter Care Teams Application Dba Relationship Specialty Start Date End Date Octaviano Saul MD PCP - General Internal Medicine 10/12/13 documented as of this encounter
--- OUTSIDE RECORDS SUMMARY | 2025-07-04 10:52 | XMS_ITS | Encounter Summary ---
Author Organization [employer] Address [address] [place] [address] Care Team Providers Care Steel Molder Name Role Phone Octaviano Saul MD Primary Care Provider Unav ailable Encounter Details Date Type Department Care Team (Latest Contact Info) Description 10/07/2007 Outpatient Historical HIS [facility] Palafox, MD Rupesh [address] [facility] [address] [place] [address] Other Malaise and Fatigue Social History Tobacco Use Types Packs/Day Years Used Date Smoking Tobacco: Never Assessed Sex and Gender Information Value Date Recorded Sex Assigned at Not on file Legal Sex Male 3:59 AM BUCKLE ATTACHER Gender Identity Not on file Sexual Orientation Not on file documented as of this encounter Plan of Treatment Not on file documented as of this encounter Visit Diagnoses Diagnosis Other malaise and fatigue documented in this encounter Care Teams Steel Molder Relationship Specialty Start Date End Date Ocatviano Saul MD PCP - General Internal Medicine 10/12/13 documented as of this encounter
--- OUTSIDE RECORDS SUMMARY | 2025-07-04 10:52 | XMS_ITS | Clinical Summary ---
Author Organization [facility] Address [address] [place] [address] Phone Care Team Providers Care Mixed Crop Farmer Name Role Phone Octaviano Saul MD Primary [...] on file Legal Sex Male 3:59 AM PROTOCOL OFFICER Gender Identity Not on file Sexual Orientation [...] Dates) Name:Sandy Giles Relation to Subscriber:Self Name:Sandy Gilse Payer ID:Not on file Group ID:[id number] Type:RX Commercial Address: [place] [address] Advance Directives For more information, please contact: [phone] * Full Code (Latest Code Status on File) Date Activated Date Inactivated Comments 09/30/2016 7:02 AM 09/30/2016 11:09 AM * Full Code Date Activated Date Inactivated Comments 11/08/2013 10:55 AM 11/08/2013 3:10 PM Care Teams Mixed Crop Farmer Relationship Specialty Start Date End Date Octaviano Saul MD PCP - General Internal Medicine 10/12/13
--- OUTSIDE RECORDS SUMMARY | 2025-07-04 10:52 | XMS_ITS | Encounter Summary ---
Author Organization [facility] Address [address] [place] [address] Care Team Providers Care Skeet Operator Name Role Phone Nicole Huffman Primary Care Provider [phone]- [phone] Encounter Details Date Type Department Care Team (Late st Contact Info) Description 09/13/2021 [employer] Message Enc [facility] Medical Group Family & Internal Medicine [facility] [address] [place] [address] Nicole Huffman APNP [facility] [place] [address] Recent med changes Social History [...] Coronavirus/COVID-19? No / Unsure 08/15/2021 10:11 AM MACHINE SHOP LEAD MAN documented as of this encounter Plan of Treatment Not on file documented as of this encounter Visit Diagnoses Not on filedocumented in this encounter Additional Health Concerns Assessment Noted Time PHQ-9 Depression Total Score: 0 03/29/20 20 11:38 AM CDT documented as of this encounter Care Teams Skeet Operator Relationship Specialty Start Date End Date Nicole Huffman APNP [address] [place] [address] PCP - General NURSE PRACTITIONER 03/29/20 documented as of this encounter
--- OUTSIDE RECORDS SUMMARY | 2025-07-04 10:52 | XMS_ITS | Encounter Summary ---
Author Organization [facility] Address [address] [place] [address] Care Team Providers Care Tile Burner Name Role Phone Octaviano Saul MD Primary Care Provider Unav ailable Encounter Details Date Type Department Care Team (Latest Contact Info) Description 08/26/2007 Outpatient Historical HIS [facility] Palafox, MD Rupesh [address] [facility] [address] [place] [address] Acute Pharyngitis Social History Tobacco Use Types Packs/Day Years Used Date Smoking Tobacco: Never Assessed Sex and Gender Information Value Date Recorded Sex Assigned at Not on file Legal Sex Male 3:59 AM MANAGER WHOLESALE Gender Identity Not on file Sexual Orientation Not on file documented as of this encounter Plan of Treatment Not on file documented as of this encounter Procedures Procedure Name Priority Date/Time Associated Diagnosis Comments HEMATOLOGY COMMENT Routine 08/26/2007 2: 56 PM MANAGER WHOLESALE MONONUCLEOSIS SCREEN Routine 08/26/2007 2:56 PM MANAGER WHOLESALE documented in this encounter Results * HEMATOLOGY COMMENT (08/26/2007 2:56 PM MANAGER WHOLESALE) RESULT COMMENT HEMATOLOGY Re:_ : _. REPORTED RESULTS 08-29-07 01:53PM [facility] Blood specimen (specimen) 08/26/2007 2:56 PM MANAGER WHOLESALE 08/26/2007 3:30 PM MANAGER WHOLESALE Rupesh Palafox MD HEMATOLOGY ORDERABLES Final Resu lt Performing Organization Address [facility] Co de Phone Number [facility] [address] [place] [address] * (ABNORMAL) MONONUCLEOSIS SCREEN (08/26/2007 2:56 PM MANAGER WHOLESALE) MONONUCLEOSIS SCREEN Positive( A) Negative [facility] Blood specimen (specimen) 08/26/2007 2:56 PM MANAGER WHOLESALE 08/26/2007 3:30 PM MANAGER WHOLESALE Rupesh Palafox MD HEMATOLOGY ORDERABLES Final Resu lt Performing Organization Address [facility] de Phone Number [facility] [address] [place] [address] documented in this encounter Visit Diagnoses Diagnosis Acute pharyngitis documented in this encounter Care Teams Tile Burner Relationship Specialty Start Date End Date Octaviano Saul MD PCP - General Internal Medicine 10/12/13 documented as of this encounter
--- OUTSIDE RECORDS SUMMARY | 2025-07-04 10:52 | XMS_ITS | Encounter Summary ---
Author Organization [facility] Address [address] [place] [address] Care Team Providers Care Wine Cellar Worker Name Role Phone Nicole Huffman Primary Care Provider +1- [phone] Encounter Details Date Type Department Care Team (Late st Contact Info) Description 02/15/2022 [employer] Message Enc [facility] Medical Group Family & Internal Medicine [facility] [address] [place] [address] Nicole Huffman APNP [facility] [place], [place] [phone] Increase in dosage of meds Social History [...] documented as of this encounter Care Teams Wine Cellar Worker Relationship Specialty Start Date End Date Nicole Huffman APNP [address] [place] [address] PCP - General NURSE PRACTITIONER 03/29/20 documented as of this encounter
--- OUTSIDE RECORDS SUMMARY | 2025-07-04 10:52 | XMS_ITS | Encounter Summary ---
Author Organization [employer] Address 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
--- OUTSIDE RECORDS SUMMARY | 2025-07-04 10:52 | XMS_ITS | Clinical Summary ---
Author Organization [facility] Address [address] [place] [address] Care Team Providers Care Washateria Attendant Name Role Phone Armida Nicole SHETTY Primary Care Provider +1- [phone] Allergies No known active allergies Medications multi [...] Encounters Date Type Department Care Team Description 06/25/2025 Scan [facility] Scanned, Doc Med Group Stress Test (SCAN) 06/11/2025 Scan [facility] SRV[facility] Scanned, [...] Comments Blood Pressure 138/76 06/22/2024 9:21 AM HAND BOBBIN CLEANER Pulse 69 06/22/2024 9:21 AM HAND BOBBIN CLEANER Temperature 36.2 C (97.2 F) 06/22/2024 9:21 AM HAND BOBBIN CLEANER Respiratory Rate 16 06/22/2024 9:21 AM HAND BOBBIN CLEANER Oxygen Saturation 97% 06/22/2024 9:21 AM HAND BOBBIN CLEANER Inhaled Oxygen Concentration - - Weight 115.8 kg (255 lb 3.2 oz) 06/22/2024 9:21 AM HAND BOBBIN CLEANER Height 177.8 cm (5' 10) 06/22/2024 9:21 AM HAND BOBBIN CLEANER Body Mass Index 36.62 06/22/2024 9:21 AM HAND BOBBIN CLEANER Plan of Treatment Health Maintenance Due Date Last Done Comments Hepatitis C 1991 Hepatitis B Vaccines (1 of 3 - 19+ 3-dose series) 01/27/1992 Pneumococcal Vaccine: 50+ Years (1 of 1 - PCV) 2023 Zoster Vaccines (1 of 2) 2023 PHQ-2 (Physician Nikolai) 07/05/2024 06/22/2024 COVID-19 Vaccine (5 - 2024- season) 2025 06/23/2022, 07/03/2021, 07/14/2020, Additional history [...] Procedure Name Priority Date/Time Associated Diagnosis Comments STRESS TEST (SCAN ORDER) 06/25/2025 ECHO GENERIC (SCAN ORDER) 06/11/2025 COLONOSCOPY GENERIC (SCAN ORDER) 10/08/2023 from Last 3 Months or Most Recently Relevant to Health Maintenance Results * STRESS TEST (SCAN ORDER) (06/25/2025) 06/25/2025 us [facility] Scanned SCANNING Final Resu lt * ECHO GENERIC (SCAN ORDER) (06/11/2025) Anatomical Region Laterality Modality Other 06/11/2025 us [facility] Scanned SCANNING Final Resu lt * COLONOSCOPY GENERIC (SCAN ORDER) (10/08/2023) 10/08/2023 us Doc [facility] Scanned SCANNING Final Resu lt from Last 3 Months or Most Recently Relevant to Health Maintenance Insurance [facility] [place] [address] Care Teams Washateria Attendant Relationship Specialty Start Date End Date Nicole Huffman APNP [address] [place] [address] PCP - General NURSE PRACTITIONER 03/29/20
--- OUTSIDE RECORDS SUMMARY | 2025-07-04 10:53 | XMS_ITS | Encounter Summary ---
Author Organization [id number] Address 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
--- OUTSIDE RECORDS SUMMARY | 2025-07-04 10:53 | XMS_ITS | Encounter Summary ---
Author Organization [employer] Address [address] [place] [address] Care Team Providers Care Recording Clerk Name Role Phone Octaviano Saul MD Primary Care Provider Unav ailable Encounter Details Date Type Department Care Team (Latest Contact Info) Description 06/09/2004 Outpatient Historical [facility] CARDIOPULMONARY Javy, MD Rupesh [address] [place] [address] CHEST PAIN NOS (Primary Dx) Social History Tobacco Use Types Packs/Day Years Used Date Smoking Tobacco: Never Assessed Sex and Gender Information Value Date Recorded Sex Assigned at Not on file Legal Sex Male 3:59 AM JIG MILL OPERATOR Gender Identity Not on file Sexual Orientation Not on file documented as of this encounter Plan of Treatment Not on file documented as of this encounter Visit Diagnoses Diagnosis Chest pain, unspecified- Primary documented in this encounter Care Teams Recording Clerk Relationship Specialty Start Date End Date Octaviano Saul MD PCP - General Internal Medicine 10/12/13 documented as of this encounter
--- OUTSIDE RECORDS SUMMARY | 2025-07-04 10:53 | XMS_ITS | Encounter Summary ---
Author Organization [facility] Address [address] [place] [address] Care Team Providers Care Spray Blender Name Role Phone Nicole Huffman Primary Care Provider +1- [phone] Encounter Details Date Type Department Care Team (Late st Contact Info) Description 07/04/2020 [employer] Message Enc [facility] Family & Internal Medicine [facility] [address] [place] [address] Nicole Huffman APNP [address] [place] [address] RE: Medication Questions Social History [...] documented as of this encounter Care Teams Spray Blender Relationship Specialty Start Date End Date Nicole Huffman APNP [facility] [place] [address] PCP - General NURSE PRACTITIONER 03/29/20 documented as of this encounter
--- OUTSIDE RECORDS SUMMARY | 2025-07-04 10:53 | XMS_ITS | Encounter Summary ---
Author Organization [facility] Address [address] [place] [address] Care Team Providers Care Work Ticket Distributor Name Role Phone Nicole Huffman Primary Care Provider +1- [phone] Encounter Details Date Type Department Care Team (Late st Contact Info) Description 08/16/2022 [employer] Message Enc [facility] Family & Internal Medicine [facility] [address] [place] [address] Nicole Huffman APNP [facility] [place], [place] [id number] BP meds Social History Tobacco Use Types [...] documented as of this encounter Care Teams Work Ticket Distributor Relationship Specialty Start Date End Date Nicole Huffman APNP [facility] [place] [address] PCP - General NURSE PRACTITIONER 03/29/20 documented as of this encounter
--- OUTSIDE RECORDS SUMMARY | 2025-07-04 10:53 | XMS_ITS | Encounter Summary ---
Author Organization [employer] Address [address] [place] [address] Care Team Providers Care Document Design Specialist Name Role Phone Octaviano Saul MD Primary [...] on file Legal Sex Male 3:59 AM BORDEREAU CLERK Gender Identity Not on file Sexual Orientation Not on file documented as of this encounter Plan of Treatment Not on file documented as of this encounter Visit Diagnoses Diagnosis Pain in joint, lower leg- Primary documented in this encounter Care Teams Document Design Specialist Relationship Specialty Start Date End Date Octaviano Saul MD PCP - General Internal Medicine 10/12/13 documented as of this encounter
--- OUTSIDE RECORDS SUMMARY | 2025-07-04 10:53 | XMS_ITS | Encounter Summary ---
Author Organization [employer] [facility] Address [address] [place] [address] Care Team Providers Care Distillation Operator Helper Name Role Phone Octaviano Saul MD Primary Care Provider Unav ailable Encounter Details Date Type Department Care Team (Late st Contact Info) Description 06/21/2007 Outpatient Historical [facility], [address] Social History Tobacco Use Types Packs/Day Years Used Date Smoking Tobacco: Never Assessed Sex and Gender Information Value Date Recorded Sex Assigned at Not on file Legal Sex Male 3:59 AM MECHANICAL DRAWING TEACHER Gender Identity Not on file Sexual Orientation Not on file documented as of this encounter Plan of Treatment Not on file documented as of this encounter Procedures Procedure Name Priority Date/Time Associated Diagnosis Comments HEPATITIS B SURFACE AB, QUAL Routine 06/21/2007 11:45 AM MECHANICAL DRAWING TEACHER documented in this encounter Results * HEPATITIS B SURFACE AB (06/21/2007 11:45 AM MECHANICAL DRAWING TEACHER) HEPATITIS B SURFACE AB 12 mIU/mL INTERFACE SYSTEM Comment: PATIENT HAS IMMUNITY TO HEPATITIS B VIRUS. Lab test performed by: [facility] [address] [id number] KEIRA HOFFMAN MD 06/21/2007 11:4 5 AM MECHANICAL DRAWING TEACHER us Gwen Ceballos MD CHEMISTRY ORDERABLES Edited INTERFACE SYSTEM Refer to clinic/hospital department documented in this encounter Visit Diagnoses Not on filedocumented in this encounter Care Teams Distillation Operator Helper Relationship Specialty Start Date End Date Octaviano Saul MD PCP - General Internal Medicine 10/12/13 documented as of this encounter
--- OUTSIDE RECORDS SUMMARY | 2025-07-04 10:53 | XMS_ITS | Encounter Summary ---
Author Organization [employer] Address [address] [place] [address] Care Team Providers Care Livestock Farmer Name Role Phone Octaviano Saul MD Primary Care Provider Unav ailable Encounter Details Date Type Department Care Team (Late st Contact Info) Description 05/10/2002 Outpatient Historical HIS [facility] Palafox, MD Rupesh [address] [place] [address] Social History Tobacco Use Types Packs/Day Years Used Date Smoking Tobacco: Never Assessed Sex and Gender Information Value Date Recorded Sex Assigned at Not on file Legal Sex Male 3:59 AM ELECTRIC POWER LINE EXAMINER Gender Identity Not on file Sexual Orientation Not on file documented as of this encounter Plan of Treatment Not on file documented as of this encounter Visit Diagnoses Not on filedocumented in this encounter Care Teams Livestock Farmer Relationship Specialty Start Date End Date Octaviano Saul MD PCP - General Internal Medicine 10/12/13 documented as of this encounter
--- OUTSIDE RECORDS SUMMARY | 2025-07-04 10:53 | XMS_ITS | Encounter Summary ---
Author Organization [employer] Address [address] [place] [address] Care Team Providers Care Hospitality Associate Name Role Phone Octaviano Saul MD Primary Care Provider Unav ailable Encounter Details Date Type Department Care Team (Late st Contact Info) Description 08/25/2007 Outpatient Historical HIS [facility] Palafox, MD Rupesh [address] [place] [address] Fever Social History Tobacco Use Types Packs/Day Years Used Date Smoking Tobacco: Never Assessed Sex and Gender Information Value Date Recorded Sex Assigned at Not on file Legal Sex Male 3:59 AM STEEL PICKLER Gender Identity Not on file Sexual Orientation Not on file documented as of this encounter Plan of Treatment Not on file documented as of this encounter Procedures Procedure Name Priority Date/Time Associated Diagnosis Comments CBC WITH DIFFERENTIAL Routine 08/25/2007 12:12 PM STEEL PICKLER SEDIMENTATION RATE Routine 08/25/2007 12 :12 PM STEEL PICKLER COMPREHENSIVE METABOLIC PANEL Routine 08/25/2007 12:12 PM STEEL PICKLER documented in this encounter Results * (ABNORMAL) COMPREHENSIVE METABOLIC PANEL (08/25/2007 12:12 PM STEEL PICKLER) CALCIUM 8.7 8.4 - 10.2 mg/dL [facility] ALBUMIN 4.0 3.4 - 4.8 g/dL [facility] CHLORIDE 101 96 - 108 mmol/L [facility] CREATININE 0.78 0.67 - 1.17 mg/dL [facility] ALT 175(H) 0 - 41 U/L [facility] SODIUM 140 135 - 145 mmol/L [facility] ALKALINE PHOSPHATASE 99 40 - 129 U/L [facility] CO2 29 22 - 30 mmol/L [facility] BILIRUBIN TOTAL 0.4 0.2 - 1.0 mg/dL [facility] POTASSIUM 3.7 3.5 - 4.9 mmol/L [facility] TOTAL PROTEIN 7.4 6.3 - 8.6 g/dL [facility] GLUCOSE 73 65 - 99 mg/dL [facility] AST 148(H) 12 - 38 U/L [facility] BUN 16 6 - 20 mg/dL [facility] GFR, >60 >=60 mL/min/1. 7 sq meter [facility] GFR >60 >=60 mL/min/1. 7 sq meter [facility] Comment: Estimated GFR rate interpretative information for both Americans and non- Americans is available on the [facility] Intranet at: [email or web address] Select: Lab Policies and Procedures Select: Reference Ranges - GFR Blood specimen (specimen) 08/25/2007 12:12 PM STEEL PICKLER 08/25/2007 12:30 PM STEEL PICKLER Rupesh Palafox MD CHEMISTRY ORDERABLES Edited [facility] [address] [place] [address] * (ABNORMAL) SEDIMENTATION RATE (08/25/2007 12:12 PM STEEL PICKLER) Pathologist [facility] ESR (SEDIMENTATION RATE) 23(H) 0 - 20 mm/hr [facility] Blood specimen (specimen) 08/25/2007 12:12 PM STEEL PICKLER 08/25/2007 12:29 PM STEEL PICKLER Rupesh Palafox MD HEMATOLOGY ORDERABLES Final Resu lt [facility] [address] [place] [address] * (ABNORMAL) CBC WITH DIFFERENTIAL (08/25/2007 12:12 PM STEEL PICKLER) [facility] RDW-STDEV 41.8 37.1 - 48.7 fL [facility] RBC 4.73 4.50 - 5.40 M/uL [facility] MCHC 34.7 31.5 - 35.5 % [facility] PLATELETS 194 140 - 350 K/uL [facility] MCV 88.4 82.0 - 99.0 fL [facility] HEMOGLOBIN 14.5 13.6 - 16.5 g/dL [facility] RDW 13.0 11.5 - 14.5 % [facility] WBC 11.8(H) 4.0 - 9.8 K/uL [facility] MCH 30.7 27.2 - 32.6 pg [facility] MPV 10.1 9.3 - 12.4 fL [facility] HEMATOCRIT 41.8 40.0 - 48.0 % [facility] EOSINOPHIL ABSOLUTE 0.12 0.00 - 0.70 K/uL [facility] EOSINOPHILS 1 0 - 7 % [facility] LYMPHOCYTE ABSOLUTE 6.96(H) 0.70 - 4.50 K/uL [facility] PLATELET EST. Consistent w/ count Normal [facility] LYMPHOCYTES 45 16 - 45 % [facility] BASOPHILS ABSOLUTE 0.12 0.00 - 0.20 K/uL [facility] BASOPHILS 1 0 - 2 % [facility] MONOCYTE ABSOLUTE 0.47 0.10 - 1.30 K/uL [facility] MONOCYTES 4 3 - 13 % [facility] ANISOCYTOSIS Slight [facility] NEUTROPHIL ABSOLUTE 4.13 1.90 - 7.00 K/uL [facility] NEUTROPHILS 35(L) 45 - 70 % [facility] ATYPICAL LYMPHOCYTE 14(H) 0 - 5 % [facility] Blood specimen (specimen) 08/25/2007 12:12 PM STEEL PICKLER 08/25/2007 12:29 PM STEEL PICKLER Rupesh Palafox MD HEMATOLOGY ORDERABLES Edited [facility] [address] [place] [address] documented in this encounter Visit Diagnoses Diagnosis Fever and other physiologic disturbances of temperature regulation documented in this encounter Care Teams Hospitality Associate Relationship Specialty Start Date End Date Octaviano Saul MD PCP - General Internal Medicine 10/12/13 documented as of this encounter
--- OUTSIDE RECORDS SUMMARY | 2025-07-04 10:53 | XMS_ITS | Encounter Summary ---
Author Organization [facility] Address 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
--- OUTSIDE RECORDS SUMMARY | 2025-07-04 10:53 | XMS_ITS | Encounter Summary ---
Author Organization [employer] Address [address] [place] [address] Care Team Providers Care Arborer Name Role Phone Octaviano Saul MD Primary Care Provider Unav ailable Encounter Details Date Type Department Care Team (Late st Contact Info) Description 06/09/[address] [facility] [facility] Support [facility]. ([facility]) [address] 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
--- OUTSIDE RECORDS SUMMARY | 2025-07-04 10:53 | XMS_ITS | Encounter Summary ---
Author Organization [employer] Address 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
--- OUTSIDE RECORDS SUMMARY | 2025-07-04 10:53 | XMS_ITS | Encounter Summary ---
Author Organization [facility] Address [address] [place] [address] Care Team Providers Care Maitre D' Name Role Phone Nicole Huffman SENA Primary Care Provider [phone] Reason for Visit * Reason Comments Stress Test (SCAN) Encounter Details Date Type Department Care Team ([facility] Contact Info) Description 06/25/2025 Scan HEALTH INFO SRVCS Scanned, Doc Med Group Stress Test (SCAN) Social History Tobacco Use Types Packs/Day Years Used Date Smoking Tobacco: Former Cigarettes 0.5 9 0 03/29/1999 - 03/29/2008 Smokeless Tobacco: Never Alcohol Use Standard Drinks/Week Comments Yes 10 [...] Diagnosis Comments STRESS TEST (SCAN ORDER) 06/25/2025 documented in this encounter Results * STRESS TEST (SCAN ORDER) (06/25/2025) 06/25/2025 us Doc [facility] Scanned SCANNING Final Resu lt documented in this encounter Visit Diagnoses Not on filedocumented in this encounter Additional Health Concerns Assessment Noted Time PHQ-9 Depression Total Score: 0 03/29/20 20 11:38 AM CDT documented as of this encounter Care Teams Maitre D' Relationship Specialty Start Date End Date Nicole Huffman APNP [address] [place] [address] PCP - General NURSE PRACTITIONER 03/29/20 documented as of this encounter
--- OUTSIDE RECORDS SUMMARY | 2025-07-04 10:58 | XMS_ITS | Encounter Summary ---
Author Organization [facility] Address [address] [place] [address] Care Team Providers Care Quiller Runner Name Role Phone Nicole Huffman Primary Care Provider [phone]- [phone] Encounter Details Date Type Department Care Team (Late st Contact Info) Description 07/07/2022 Enswers Message Enc [facility] Family & Internal Medicine [facility] [address] [place] [address] Nicole Huffman APNP [facility] [place], [place] [id number] Insurance issues Social History Tobacco Use Types [...] documented as of this encounter Care Teams Quiller Runner Relationship Specialty Start Date End Date Nicole Huffman APNP [address] [place] [address] PCP - General NURSE PRACTITIONER 03/29/20 documented as of this encounter
[2025-07-04 11:10] VITALS: RESP 16
== END 2025-07-04 11:10 | disposition home or self-care (01) ==
PROVIDERS: Emergency Provider Emergency Medicine; PCP Registered Nurse
DX: F41.9 Anxiety disorder, unspecified (principal)
CPT/HCPCS: 99283